=== PATIENT | female | born 1975 | race Caucasian/White ===

== ENCOUNTER 2025-02-21 14:34 | Emergency (ER) | payer MEDICAID, SELFPAY ==
--- OUTSIDE RECORDS SUMMARY | 2025-02-18 22:32 | XMS_ITS | Encounter Summary ---
Author Organization [facility] Address [address] [place] [address] Care Team Providers Care Clinical Data Analyst Name Role Phone Elsewhere, Pcp Primary Care Provider Unavailabl e Reason for Visit * Reason Comments Headache Pt comes in for eval uation of head pressure and vision changes that feels like her previous stroke. She ambulated into the ED and into a room without assistance. There are no other symptoms reported. Symptoms have been ongoing x 2 days. Encounter Details Date Type Department Care Team (Late st Contact Info) Description 02/18/2025 10:32 PM CDT - 02/19/2025 1:10 AM CDT Emergency [facility] [address] [place] [phone] Markell Thomas M.D. [address] [place] [phone] Hypophosphatemia (Primary Dx); Headache Unspecified Discharge Disposition: Home or Self Care Social History Tobacco Use Types Packs/Day Years Used Date Smoking Tobacco: Every Day Cigarettes 0.5 25 Smokeless Tobacco: Never Alcohol Use Standard Drinks/Week Comments Yes 0 (1 standard drink = 0.6 oz pur e alcohol) Hunger Vital Sign Answer Date Recorded Within the past 12 months, y ou worried that your food would run out before you got the money to buy more. Never true 03/23/20 21 Within the past 12 months, t he food you bought just didn't last and you didn't have money to get more. Never true 03/23/2021 PRAPARE - Transportation Answer Date Re corded In the past 12 months, has l ack of transportation kept you from medical appointments or from getting medications? No 03/05 In the past 12 months, has l ack of transportation kept you from meetings, work, or from getting things needed for daily living? No 03/23/2021 Housing Stability Vital Sign Answer Edu e Recorded In the last 12 months, was t here a time when you were not able to pay the mortgage or rent on time? Patient refused 03/23/20 21 Number of Places Lived in the Last Year Not on f ile 03/23/2021 In the last 12 months, was t here a time when you did not have a steady place to sleep or slept in a [facility] (including now)? No 03/23/2021 Education Answer Date Recorded What is the highest level of school you have completed or the highest degree you have received? Associate degree: academic program 03/23/2021 Comments No Sex and Gender Information Value Date Recorded Sex Assigned at Not on file Legal Sex Female 7:07 AM [employer] Gender Identity Female 03/23/2021 11:55 PM CDT Sexual Orientation Straight 03/23/2021 11 :55 PM CDT documented as of this encounter Last Filed Vital Signs Vital Sign Reading Time Taken Comments Blood Pressure 100/73 02/19/2025 12:52 AM CDT Pulse 99 02/19/2025 12:52 AM CDT Temperature 36.7 C (98.1 F) 02/18/2025 10:33 PM CDT Respiratory Rate 16 02/19/2025 12:52 AM CDT Oxygen Saturation 99% 02/19/2025 12:52 AM CDT Inhaled Oxygen Concentration - - Weight 81 kg (178 lb 9.2 oz) 02/18/2025 10:33 PM CDT Height - - Body Mass Index 31.63 03/31/2024 1:36 AM CDT documented in this encounter Discharge Instructions * Discharge Instructions* Markell Thomas M.D. - 02/19/2025 12:24 AM CDT Please follow up with your family doctor on Friday, please continue take your Eliquis as indicated. You were examined and treated today in the [facility] Emergency Department (ED) on an emergency basis. This visit is not a substitute for comprehensive and ongoing medical care. In most cases, you must let your primary physician evaluate you again. Call your doctor today to advise them ofyour ED visit and arrange for out patient follow up. Tell your doctor about any new or lasting problems. After you leave the ED today, please follow the instructions provided to you. Return to the Emergency Department for new, worsening, or persistent symptoms. documented in this encounter Medications at Time of Discharge acetaminophen (TYLENOL) 325 mg tablet Take 325 mg by mouth as needed for pain. albuterol (Ventolin HFA) 90 mcg/actuation inhaler INHALE 1 OR 2 PUFFS INTO THE LUNGS EVERY 6 HOURS NEEDED FOR WHEEZING, SHORTNESS OF BREATH, OR COUGH. SHAKE BEFORE USING 09/27/2011 ALPRAZolam (XANAX) 0.5 mg tablet Take 0.5 mg by mouth 3 (three) times a day as needed. 12/11/2022 diphenhydrAMINE (BENADRYL) 25 mg tablet Take 25 mg by mouth as needed. famotidine (PEPCID) 20 mg tablet Take 1 tablet by mouth at bedtime. 09/06/2022 FLUoxetine (PROzac) 40 mg capsule Take 40 mg by mouth daily. 07/30/2022 furosemide (LASIX) 20 mg tablet Take 20 mg by mouth daily. 10/07/2022 furosemide (LASIX) 20 mg tablet Take 80 mg by mouth. 09/03/2022 losartan (COZAAR) 25 mg tablet Take 25 mg by mouth daily. 10/09/2022 metoprolol succinate (TOPROL-XL) 25 mg 24 hr tablet Take 25 mg by mouth daily. 10/09/2022 oxyCODONE (Roxicodone) 5 mg immediate release tabletIndication s:Acute Pain Take 1 tablet (5 mg total) by mouth every 6 (six) hours as needed for pain (pain) Indication: Acute Pain. 12 tablet 04/01/2024 potassium chloride (KLORCON/K-TAB) 10 mEq ER tablet Take 10 mEq by mouth. 10/09/2022 rosuvastatin (CRESTOR) 40 mg tablet Take 40 mg by mouth. 10/09/2022 traZODone (DESYREL) 50 mg tablet Take 1 tablet by mouth at bedtime. 11/02/2020 warfarin (COUMADIN) 2.5 mg tablet Take one and one half tabs (3.75 mg) by mouth on Mondays and Fridays and one tab (2.5 mg) all other days of the week OR as directed by [facility]. 12/16/2022 warfarin (COUMADIN) 5 mg tablet DOSAGE CHANGE 02/22/2021 documented as of this encounter ED Notes * Markell Thomas M.D. - 02/18/2025 10:47 PM CDT EMERGENCY MEDICINE CHIEF COMPLAINT Headache (Pt comes in for evaluation of head pressure and vision changes that feels like her previous stroke. She ambulated into the ED and into a room without assistance. There are no other symptomsreported. Symptoms have been ongoing x 2 days.) INITIAL VITAL SIGNS Initial Vitals [02/18/25 2233] Temperature 36.7 ??C Pulse Rate 104 Heart Rate Resp Rate 18 Blood Pressure 113/69 SpO2 100 % Pain Score 5 - Moderate pain ASSESSMENT AND PLAN This is a 49 y.o. female with a known history of hypertension, tobacco use, gout, ASD s/p closure at age 5, prior CVA, and TIA on Eliquis (recently switched from Coumadin on 01/2025). She presents tot emergency department for evaluation of headache with associated vision changes for the past 48 hours. She reports that the symptoms feel similar to her prior stroke several years ago; however, she is unable to clarify how she presented at that time. She reports that over the last 2 days, she has had a band-like head pressure with associated halos when looking at lights. She endorses mild nausea secondary to her Wegovy and shakiness, but no blurry vision, chest pain, abdominal pain, or urinary symptoms. She reports that today she felt very shaky and mildly confused, prompting her to come to the emergency department accompanied by her father. She also endorses migraine-like headaches in the past with associated auras; however, it has been several years, and that typically presents in a retro- orbital fashion. Patient self reports that she has a doctor's appointment with her PCP on Friday. On physical exam Patient is alert and oriented. Speech is clear. No facial droop or other cranial nerve abnormality. Extraocular movements intact. No nystagmus. No visual field deficits. No neck stiffness. Pupils equal round and reactive to light. Normal [id number] and [id number]. No pronatordrift. Strength and sensation intact in all 4 extremities. This patient presents with a headache most consistent with benign headache from either tension typeheadache vs migraine. No headache red flags. Neurologic exam without evidence of meningismus, AMS, focal neurologic findings so doubt meningitis, encephalitis, stroke (the patient is on anticoagulation, and outside of the stroke window, no evidence of focal neuro deficit). Presentation not consistent with acute intracranial bleed to include SAH (lack of risk factors, headache history). No historyof trauma so doubt ICH. Doubt carotid artery dissection given no focal neuro deficits, no neck trauma or recent neck strain. Patient with no signs of increased intracranial pressure or weight loss and history and physical suggest more benign headache so less likely mass effect in brain from tumor or abscess or idiopathic intracranial hypertension. Pain was controlled with Zyprexa ODT and patient discharged home with PCP follow up in the [facility] on friday. She understands the the signs and symptoms to prompt return to the ED as well as the follow up planwe discussed. It was a pleasure to meet with and provide care for Mrs. Iverson today. She is comfortable with the plan above and all questions have been answered to the best of our ability for her atthis time. ED Prescriptions None I reviewed the following external records: primary care records ED Course as of 02/19/256 FriFeb 18, 20252336 Creatinine: 0.73 2336 Phosphorus (Inorganic), P(!): 2.1 Will replete PO 2336 INR: 1.3 INR comparable to prior lab obtained in 01/2025 2341 HCG, Quantitative, , P: <1.0 [facility] Feb 19, 2025 0028 Anion Gap, P: 13 0028 Glucose, P: [address] Head Neck Angiogram with IV Contrast CT HEAD: 1. No evidence of an acute intracranial abnormality. CTA HEAD: 1. No hemodynamically significant stenosis or occlusion. CTA NECK: 1. No hemodynamically significant stenosis, occlusion, or evidence of dissection. Final Diagnoses: as of 02/19/2545 Hypophosphatemia Headache Unspecified Markell Thomas M.D. 02/19/25 0047 documented in this encounter Plan of Treatment Not on file documented as of this encounter Procedures Procedure Name Priority Date/Time Associated Diagnosis Comments CT HEAD NECK ANGIOGRAM WITH IV CONTRAST RAD - Semiurgent (Fast; most ED patients; some inpatients) 02/19/2025 12:13 AM CDT PROTHROMBIN TIME (PT), P STAT 02/18/2025 11:09 PM CDT CBC WITH DIFFERENTIAL, B STAT 02/18/2025 11:09 PM CDT HUMAN CHORIONIC GONADOTROPIN (HCG), MARCELINO, STAT 02/18/2025 11:09 PM CDT PHOSPHORUS (INORGANIC), S STAT 02/18/2025 11:09 PM CDT MAGNESIUM, S STAT 02/18/2025 11:09 PM CDT BASIC METABOLIC PANEL, S/P STAT 02/18/2025 11:09 PM CDT documented in this encounter Results * CT Head Neck Angiogram with IV Contrast (02/19/2025 12:13 AM CDT) Anatomical Region Laterality Modality Head and Neck, Neuroradiolog y RST LOS, Neuroradiology ARZ LOS, Neuroradiology FL LOS N/A Computed Tomography 02/19/2025 12:1 9 AM CDT Impressions 02/19/2025 12:[address] HEAD: 1. No evidence of an acute intracranial abnormality. CTA HEAD: 1. No hemodynamically significant stenosis or occlusion. CTA NECK: 1. No hemodynamically significant stenosis, occlusion, or evidence of dissection. Narrative 02/19/2025 12:33 AM CDT EXAM: CT HEAD NECK ANGIOGRAM WITH IV CONTRAST Including 3D image postprocessing with or without AI assistance. COMPARISON: CT head 03/21/2023, CTA head and neck 02/10/2021 FINDINGS: CT BRAIN: Parenchyma: White matter is normal. No parenchymal hemorrhage, mass lesion, or evidence of evolving large territorial infarct. Chronic infarcts of the right temporal lobe and bilateral occipital lobes. Extra-axial spaces: No extra-axial hemorrhage, collection, or generalized intracranial mass effect. Volume: Parenchymal volume is normal. No hydrocephalus. Calvarium: Normal. Extracranial: Orbits unremarkable. The visualized paranasal sinuses are clear. No mastoid or middle ear effusion. Other: N/A CTA NECK: Arch: The visualized aortic arch and origins of the great vessels are patent. Carotids: The bilateral common and internal carotid arteries are patent without hemodynamically significant stenosis or evidence of carotid dissection. ICA origin stenosis by NASCET criteria: Right: 0% Left: 0% Vertebrals: The vertebral arteries are patent without hemodynamically significant stenosis or evidence of vertebral dissection. Other: C4-C5 ACDF. CTA BRAIN: Anterior circulation: The intracranial internal carotid arteries, middle cerebral arteries, and anterior cerebral arteries are patent. No large vessel occlusion. No aneurysm or evidence of vascular malformation or AV fistula. Posterior circulation: The vertebrobasilar junction, posterior cerebral arteries, and major cerebellar branches are patent. No large vessel occlusion. No aneurysm or evidence of vascular malformation or AV fistula. Anatomic variation includes hypoplastic versus absent left P1 segment with patent posterior communicating artery. Venous: The major dural venous sinuses are not well characterized on this exam performed in the arterial phase. Procedure Note Chris Solano M.D. - 02/19/2025 EXAM: CT HEAD NECK ANGIOGRAM WITH IV CONTRAST Including 3D image postprocessing with or without AI assistance. COMPARISON: CT head 03/21/2023, CTA head and neck 02/10/2021 FINDINGS: CT BRAIN: Parenchyma: White matter is normal. No parenchymal hemorrhage, masslesion, or evidence of evolving large territorial infarct. Chronicinfarcts of the right temporal lobe and bilateral occipital lobes. Extra-axial spaces: No extra-axial hemorrhage, collection, or generalizedintracranial mass effect. Volume: Parenchymal volume is normal. No hydrocephalus. Calvarium: Normal. Extracranial: Orbits unremarkable. The visualized paranasal sinuses areclear. No mastoid or middle ear effusion. Other: N/A CTA NECK: Arch: The visualized aortic arch and origins of the great vessels arepatent. Carotids: The bilateral common and internal carotid arteries are patentwithout hemodynamically significant stenosis or evidence of carotiddissection. ICA origin stenosis by NASCET criteria: Right: 0% Left: 0% Vertebrals: The vertebral arteries are patent without hemodynamicallysignificant stenosis or evidence of vertebral dissection. Other: C4-C5 ACDF. CTA BRAIN: Anterior circulation: The intracranial internal carotid arteries, middlecerebral arteries, and anterior cerebral arteries are patent. No largevessel occlusion. No aneurysm or evidence of vascular malformation or AVfistula. Posterior circulation: The vertebrobasilar junction, posterior cerebralarteries, and major cerebellar branches are patent. No large vesselocclusion. No aneurysm or evidence of vascular malformation or AV fistula.Anatomic variation includes hypoplastic versus absent left P1 segment with patent posterior communicatingartery. Venous: The major dural venous sinuses are not well characterized on thisexam performed in the arterial phase. IMPRESSION: CT HEAD: 1. No evidence of an acute intracranial abnormality. CTA HEAD: 1. No hemodynamically significant stenosis or occlusion. CTA NECK: 1. No hemodynamically significant stenosis, occlusion, or evidence ofdissection. us Markell Thomas M.D. IMG CT PROCEDURE S Final Result * (ABNORMAL) Phosphorus Inorganic (02/18/2025 11:09 PM CDT) Phosphorus (Inorganic), P 2.1(L) 2.5 - 4.5 mg/dL 02/18/2025 11:28 PM CDT CNFL Blood (Blood, Venous) 02/18/2025 11:09 PM CDT 02/18/2025 11:11 PM CDT us Markell Thomas M.D. LAB BLOOD ADD-ON Final Result [facility] [address] [place] [id number], [address] [address] * Magnesium (02/18/2025 11:09 PM CDT) Magnesium, P 1.8 1.7 - 2.3 mg/dL 02/18/2025 11:28 PM CDT [facility] Blood (Blood, Venous) 02/18/2025 11:09 PM CDT 02/18/2025 11:11 PM CDT Markell Thomas M.D. LAB BLOOD ADD-ON Final Result [address] [address], [address] [address] * (ABNORMAL) Prothrombin Time (PT) (02/18/2025 11:09 PM CDT) Prothrombin Time, P 14.2(H) 9.4 - 12.5 sec 02/18/2025 11:31 PM CDT [facility] INR 1.3 0.9 - 1.1 02/18/2025 11:31 PM CDT [facility] Comment: ----ADDITIONAL INFORMATION---- Standard intensity warfarin therapeutic range: 2.0 to 3.0 High intensity warfarin therapeutic range: 2.5 to 3.5 Blood (Blood, Venous) 02/18/2025 11:09 PM CDT 02/18/2025 11:11 PM CDT Markell Thomas M.D. LAB BLOOD ADD-ON Final Result Performing Organization Address City/[facility]/ZIP Co de Phone Number [address] [address], [address] [address] * hCG (Human Chorionic Gonadotropin), Quantitative, (02/18/2025 11:09 PM CDT) HCG, Quantitative, , P <1.0 <5 IU/L 02/18/2025 11:37 PM CDT [facility] Blood (Blood, Venous) 02/18/2025 11:09 PM CDT 02/18/2025 11:11 PM CDT Markell Thomas M.D. LAB BLOOD ADD-ON Final Result [facility] [address] [place] [phone], [facility] [email or web address]] CNFL [facility] [place] [address] * (ABNORMAL) CBC with Differential, Blood (02/18/2025 11:09 PM CDT) Pathologist [facility] Hemoglobin 12.4 11.6 - 15.0 g/dL 02/18/2025 11:18 PM CDT [facility]FL Hematocrit 35.0(L) 35.5 - 44.9 % 02/18/2025 11:18 PM CDT [facility] Erythrocytes 3.53(L) 3.92 - 5.13 x10(12)/L 02/18/2025 11:18 PM CDT [facility] MCV 99.2(H) 78.2 - 97.9 fL 02/18/2025 11:18 PM CDT [facility] RBC Distrib Width 15.8 12.2 - 16.1 % 02/18/2025 11:18 PM CDT [facility] Platelet Count 225 157 - 371 x10(9)/L 02/18/2025 11:18 PM CDT [facility] Leukocytes 7.1 3.4 - 9.6 x10(9)/L 02/18/2025 11:18 PM CDT CNFL Neutrophils 5.52 1.56 - 6.45 x10(9)/L 02/18/2025 11:18 PM CDT CNFL Lymphocytes 1.18 0.95 - 3.07 x10(9)/L 02/18/2025 11:18 PM CDT CN[facility] Monocytes 0.35 0.26 - 0.81 x10(9)/L 02/18/2025 11:18 PM CDT CNFL Eosinophils <0.04 0.03 - 0.48 x10(9)/L 02/18/2025 11:18 PM CDT CNFL Basophils <0.04 0.01 - 0.08 x10(9)/L 02/18/2025 11:18 PM CDT [facility] Blood (Blood, Venous) 02/18/2025 11:09 PM CDT 02/18/2025 11:11 PM CDT us Markell Thomas M.D. LAB BLOOD ADD-ON Final Result [facility] [address] [place] [address], [facility] [email or web address]] CNFL [facility] [place] [address] * (ABNORMAL) Basic Metabolic Panel (02/18/2025 11:09 PM CDT) Potassium, P 3.5(L) 3.6 - 5.2 mmol/L 02/18/2025 11:31 PM CDT CNFL Sodium, P 137 135 - 145 mmol/L 02/18/2025 11:31 PM CDT CNFL Chloride, P 105 98 - 107 mmol/L 02/18/2025 11:31 PM CDT CNFL Bicarbonate, P 19(L) 22 - 29 mmol/L 02/18/2025 11:31 PM CDT CNFL Anion Gap, P 13 7 - 15 02/18/2025 11:31 PM CDT [facility] BUN (Blood Urea Nitrogen), P 15 6 - 21 mg/dL 02/18/2025 11:31 PM CDT CN[facility] Creatinine 0.73 0.59 - 1.04 mg/dL 02/18/2025 11:31 PM CDT CNFL Estimated GFR (eGFR) >90 >=60 mL/min/BSA 02/18/2025 11:31 PM CDT CNFL Comment: Estimated GFR calculated using the 2020 CKD_EPI creatinine equation. Calcium, Total, P 9.1 8.6 - 10.0 mg/dL 02/18/2025 11:31 PM CDT CNFL Glucose, P 106 70 - 140 mg/dL 02/18/2025 11:31 PM CDT [facility] Blood (Blood, Venous) 02/18/2025 11:09 PM CDT 02/18/2025 11:11 PM CDT us Markell Thomas M.D. LAB BLOOD ADD-ON Final Result [facility] [address] [place] [id number], [facility] [[email or web address]] CNFL [facility] in [address] [address] documented in this encounter Visit Diagnoses Diagnosis Hypophosphatemia- Primary Headache Unspecified documented in this encounter Administered Medications Inactive Administered Medications - up to 3 most recent administrations Medication Order MAR Action Action Date Dose Rate Site iohexoL 350 mg iodine/mL solution 100 mL (Omnipaque) 100 mL, intravenous, Once in imaging, contrast, Starting on Fri02/18/25 at 2345, For 1 dose Given 02/19/2025 12:14 AM CDT 100 mL NaCl 0.9 % bolus 85 mL 85 mL, intravenous, at 85 mL/hr, Administer over 1 Hours, Once, On Fri02/18/25 at 2346, For 1 dose New Bag 02/19/2025 12:14 AM CDT 85 mL 85 mL/hr OLANZapine disintegrating tablet 5 mg (ZyPREXA Zydis) 5 mg, oral, Once, On Fri02/18/25 at 2249, For 1 dose, When splitting ODT at bedside, handle with gloves and a pill splitter to prevent moisture contact. Given 02/18/2025 11:10 PM CDT 5 mg sodium chloride 0.9 % injection 10 mL 10 mL, intravenous, Once, On Fri02/18/25 at 2346, For 1 dose Given 02/19/2025 12:14 AM CDT 10 mL documented in this encounter Active and Recently Administered Medications Times are shown in CDT. Scheduled Medication Order 02/17/2025 02/18/2025 02/19/2025 NaCl 0.9 % bolus 85 mL (COMPLETED) 85 mL, intravenous, at 85 mL/hr, Administer over 1 Hours, Once, On Fri02/18/25 at 2346, For 1 dose 0014 (New Bag - Provider: Ry Rodriguez(Nimesh)(CT), R.THemal(R))0020 (Stopped - Provider: Ehsan Lyman R.N.) OLANZapine disintegrating tablet 5 mg (ZyPREXA Zydis) (COMPLETED) 5 mg, oral, Once, On Fri02/18/25 at 2249, For 1 dose, When splitting ODT at bedside, handle with gloves and a pill splitter to prevent moisture contact. 2310 (Given - Provider: Ehsan Lyman R.N.) [id number] 280-160-250 mg per packet 2 packet (Phos-NaK) 2 packet, oral, Once, On Fri02/18/25 at 2339, For 1 dose, Mix each packet in 75 mL water or juice then administer ordered dose. 250 mg of phosphate is equivalent to 8 mmol of phosphate. 0115 (Not Given - Provider: Ehsan Lyman R.N. - Reason: Patient/family refused) sodium chloride 0.9 % injection 10 mL (COMPLETED) 10 mL, intravenous, Once, On Fri02/18/25 at 2346, For 1 dose 0014 (Given - Provid er: Ry Rodriguez(Nimesh)(CT), R.T.(R)) PRN Medication Order 02/17/2025 02/18/2025 02/19/2025 iohexoL 350 mg iodine/mL solution 100 mL (Omnipaque) (COMPLETED) 100 mL, intravenous, Once in imaging, contrast, Starting on Fri02/18/25 at 2345, For 1 dose 0014 (Given - Provid er: Ry Rodriguez(Nimesh)(CT), R.THemal(R)) documented in this encounter Additional Health Concerns Assessment Noted Time PHQ-9 Depression Total Score: 13 010 2:18 PM CDT documented as of this encounter Care Teams Clinical Data Analyst Relationship Specialty Start Date End Date Elsewhere, Pcp PCP - General Family Medicine 03/14/21 documented as of this encounter
[2025-02-21] VITALS (9 sets, daily range): BP systolic 99–122; BP diastolic 55–75; PULSE 52–76; RESP 12–18; TEMP 37.1; O2SAT 96–100; BMI 31.5
--- OUTSIDE RECORDS SUMMARY | 2025-02-21 14:37 | XMS_ITS | Encounter Summary ---
Author Organization [facility] Address [address] [address] Phone Care Team Providers Care Agricultural Equipment Sales Manager Name Role Phone Luiz Winn MD Unavailable [phone] Esther Atwood PA-C Unavailable [phone] Reason for Visit * Reason Comments Refill Request ALPRAZolam Encounter Details Date Type Department Care Team ([facility] Contact Info) Description 09/28/2024 Refill [facility] FAMILY [facility]IC[facility] [place] [address] Denise Flynn, SAP SPECIALIST, HEALTHCARE INTERPRETER [facility] [place] [address] Refill Request (ALPRAZolam ) Social History Tobacco Use Types Packs/Day Years Used Date Smoking Tobacco: Every Day Cigarettes 0.3 15 Started: 03/31/2016 Smokeless Tobacco: Never Alcohol Use Standard Drinks/Week Comments Yes 0 (1 standard drink = 0.6 oz pure alcohol) 2 days per week, 2 per occasion [facility] Utilities Answer Date Recorded In the past 12 months has [employer], gas, oil, or water company threatened to shut off services in your home? Yes 02/19/2024 Overall Financial Resource Strain (CARDIA) Answe r Date Recorded How hard is it for you to pa y for the very basics like food, housing, medical care, and heating? Not hard at all 08/22/2023 PHQ-2 Answer Date Recorded PHQ-2 Total 1 02/19/2024 Hunger Vital Sign Answer Date Recorded Within the past 12 months, y ou worried that your food would run out before you got the money to buy more. Never true 02/19/20 24 Within the past 12 months, t he food you bought just didn't last and you didn't have money to get more. Never true 02/19/2024 PRAPARE - Transportation Answer Date Re corded In the past 12 months, has l ack of transportation kept you from medical appointments or from getting medications? No 02/01 In the past 12 months, has l ack of transportation kept you from meetings, work, or from getting things needed for daily living? Yes 02/19/2024 Housing Stability Vital Sign Answer Edu e Recorded In the last 12 months, was t here a time when you were not able to pay the mortgage or rent on time? Yes 02/19/2024 Number of Times Moved in the Last Year Not on fi le 02/19/2024 At any time in the past 12 m [facility], were you homeless or living in a long term (including now)? No 02/19/2024 EH IP Housing Domain Answer Date Record ed Retired - What is your livin g situation today? I have a steady place to live 08/22/2023 EH IP Custom Utilities ([employer]) Answer Date Recorded How hard is it for you to pa y for the very basics like food, housing, medical care, and heating? 5 08/22/2023 EH IP Custom IPV Answer Date Recorded Do you feel UNSAFE in any of your personal relationships with your family members or any other acquaintances? 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 file Not on file documented as of this encounter Functional Status * Patient's Vision Adequate to Safely Complete Daily Activities Answer Date of Assessment Author Yes 12/02/2022 10:00 PM Adolfo Viveros RN * Patient's Memory Adequate to Safely Complete Daily Activities Answer Date of Assessment Author Yes 12/02/2022 10:00 PM Adolfo Viveros RN documented as of this encounter Mental Status * Patient's Judgment Adequate to Safely Complete Daily Activities Answer Entry Date Author Yes 12/02/2022 10:00 PM Adolfo Viveros RN documented in this encounter Miscellaneous Notes * Telephone Encounter - Arely Dallas RN - 09/28/2024 11:09 PM CST Denise Flynn APRN, HEALTHCARE INTERPRETER, Patient has no PCP listed. Patient was last seen by you on 02/19/24. Would you like to refill this medication as requested? Thank you. Requested Prescriptions Pending Prescriptions Disp Refills ALPRAZolam (XANAX) 0.5 MG tablet [Pharmacy Med Name: ALPRAZOLAM 0.5MG TABS] 75 Tablet 3 Sig: TAKE ONE TABLET BY MOUTH THREE TIMES A DAY NEEDED FOR ANXIETY Controlled Medication Failed - 09/28/2024 11:09 PM Failed - Controlled Medication: Review according to the controlled medication policy, if applicable. ER MACHINE ATTENDANT documented in this encounter Plan of Treatment Not on file documented as of this encounter Visit Diagnoses Not on filedocumented in this encounter Care Teams Agricultural Equipment Sales Manager Relationship Specialty Start Date End Date Luiz Winn MD [facility] [place] [address] PC Team Family Medicine 02/22/21 Esther Atwood PAChristianC [address] [place] [address] [phone] Cardiology 05/15/21 documented as of this encounter
--- OUTSIDE RECORDS SUMMARY | 2025-02-21 14:37 | XMS_ITS | Encounter Summary ---
Author Organization [facility] Address [address] [address] Phone Care Team Providers Care Insole Cementer Name Role Phone Luiz Winn MD Unavailable [phone] Esther Atwood PA-C Unavailable [phone] Denise Flynn APRN, PLASTICS FACTORY WORKER Primary Care Provider Encounter Details Date Type Department Care Team (Late st Contact Info) Description 06/06/2022 Lab Requisition [facility] [address] [place] [address] Titus العلي MD [address] [place] [address] Contact with and (suspected) exposure to other viral communicable diseases Social History Tobacco Use Types Packs/Day Years Used Date Smoking Tobacco: Every Day Cigarettes 0.3 15 Started: 03/31/2016 Smokeless Tobacco: Never Alcohol Use Standard Drinks/Week Comments Yes 0 (1 standard drink = 0.6 oz pure alcohol) 2 days per week, 2 per occasion Overall Financial Resource Strain (CARDIA) Answe r Date Recorded How hard is it for you to pa y for the very basics like food, housing, medical care, and heating? Somewhat hard 09/25/2021 PHQ-2 Answer Date Recorded PHQ-2 Total 0 10/03/2021 Hunger Vital Sign Answer Date Recorded Within the past 12 months, y ou worried that your food would run out before you got the money to buy more. Never true 09/25/19 22 Within the past 12 months, t he food you bought just didn't last and you didn't have money to get more. Never true 09/25/2021 PRAPARE - Transportation Answer Date Re corded In the past 12 months, has l ack of transportation kept you from medical appointments or from getting medications? No 09/05 In the past 12 months, has l ack of transportation kept you from meetings, work, or from getting things needed for daily living? 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 No / Unsure 05/31/2022 2:00 PM CDT documented as of this encounter Plan of Treatment Not on file documented as of this encounter Visit Diagnoses Diagnosis Contact with and (suspected) exposure to other viral communicable diseases documented in this encounter Care Teams Insole Cementer Relationship Specialty Start Date End Date Denise Flynn, COUNTY LIBRARY DIRECTOR, PLASTICS FACTORY WORKER [address] [place] [address] [phone] PCP - General Family Medicine 10/29/21 09/01/24 Luiz Winn MD [address] [place] [address] [phone] PC Team Family Medicine 02/22/21 Esther Atwood, PAChristianC [address] [place] [address] [phone] Cardiology 05/15/21 documented as of this encounter
--- OUTSIDE RECORDS SUMMARY | 2025-02-21 14:37 | XMS_ITS | Clinical Summary ---
Author Organization [facility] Address [address] [place] [address] Care Team Providers Care Patient Coordinator Front Desk Name Role Phone [facility], [facility] Primary Care Provide r Allergies Active Allergy Reactions Criticality Noted Date Comments Bupropion Other (See Comments) 06/04/2007 head pressure Levaquin 09/27/2011 Morphine Hives 02/10/2021 Nitrofurantoin Hives 08/09/2004 Promethazine-Dm 09/27/2011 Sulfa Antibiotics Hives 02/10/2021 Medications albuterol 90 MCG/ACT inhaler Inhale 2 puffs into the lungs every 4 hours as needed for shortness of breath / dyspnea. 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, unspecified blood vessel laterality (H) Take 1 tablet (4 mg) by mouth every 8 hours as needed for nausea 30 tablet Active Active Problems Problem Noted Date Diagnosed Date CVA (cerebral vascular accident) 02/11/2021 Cerebrovascular accident 02/10/2021 Vision changes 02/10/2021 Palpitations 01/08/2017 Ocular migraine 09/22/2012 Pain medication agreement 10/11/2011 Adjustment disorder with anxiety 03/03/2008 Attention deficit disorder 12/11/2007 Overview (02/10/2021): Dx'ed as teen Major depressive disorder, recurrent episode 08/2006 Calculus of kidney 05/29/2007 Overview (02/10/2021): starting at age 19 years Asthma 10/10/2006 Mitral valve regurgitation Social History Tobacco Use Types Packs/Day Years Used Date Smoking Tobacco: Never Assessed Adolescent Education Answer Date Record ed Getting School Help Needed Not on file 05/01 Comments No Sex and Gender Information Value Date Recorded Sex Assigned at Not on file Legal Sex Female 3:23 AM 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 Gender Identity Not on file Sexual Orientation Not on file Last Filed Vital Signs Vital Sign Reading Time Taken Comments Blood Pressure 107/66 11/08/2022 12:35 PM CDT Pulse 66 11/08/2022 12:35 PM CDT Temperature 37.1 C (98.8 F) 11/08/2022 6:28 AM CDT Respiratory Rate 18 11/08/2022 12:35 PM CDT Oxygen Saturation 96% 11/08/2022 12:35 PM CDT Inhaled Oxygen Concentration - - Weight 74.8 kg (165 lb) 11/08/2022 6:28 AM CDT Height 160 cm (5' 3) 02/11/2021 12:20 AM CDT Body Mass Index 29.23 02/11/2021 12:20 AM CDT Plan of Treatment Health Maintenance Due Date Last Done Comments ADVANCE CARE PLANNING 1976 ANNUAL REVIEW OF HM ORDERS 1976 ASTHMA ACTION PLAN [address] ASTH[address] COLONOGRAPHY 1976 DEPRESSION ACTION PLAN 1976 FIT 1976 FLEX SIG 1976 PHQ-9 1976 sDNA (Cologuard) 1976 COLONOSCOPY 1986 COLORECTAL CANCER SCREENING 1986 HEPATITIS B VACCINE (1 of 3 - 19+ 3-dose series) 11/27/1995 PNEUMOCOCCAL VACCINE: PEDIATRICS (0 to 5 YEARS) AND AT-RISK PATIENTS (6 to 49 YEARS) (1 of 2 - PCV) 11/27/1995 YEARLY PREVENTIVE VISIT 01/08/2018 01/08/2017, 11/10 HPV VACCINE (2 - 3-dose SCDM series) 10/31/2021 10/03/2021 LIPID 02/11/2022 02/11/2021 MAMMO SCREENING 12/11/2022 12/11/2020 COVID-19 VACCINE ( - season) 2024 08/07/2021, 12/27/2020, 11/12/2020 PAP 10/03/2024 10/03/2021, 03/0 09/2021, 10/03/2021, Additional history exists INFLUENZA VACCINE (#1) 2025 , 05/28/2019, 05/04/2018, Additional history exists DIABETES SCREENING 11/08/2025 11/08/2022, 1 , 02/14/2021, Additional history exists ZOSTER VACCINE (1 of 2) 2026 DTAP/TDAP/TD VACCINE (2 - Td or Tdap) 12/17/2026 12/17/2016 HEPATITIS C SCREENING Completed 08/27/2018, 005 HIV SCREENING Completed 10/03/2021, 06/24/2006 MENINGITIS VACCINE Aged Out No longer eligible based on patient's age to complete this topic Procedures Procedure Name Priority Date/Time Associated Diagnosis Comments COMPREHENSIVE METABOLIC PANEL STAT 11/08/2022 6:48 AM CDT LIPID PROFILE Routine 02/11/2021 7:10 AM CDT from Last 3 Months or Most Recently Relevant to Health Maintenance Results * (ABNORMAL) Comprehensive metabolic panel (11/08/2022 6:48 AM CDT) Sodium 137 136 - 145 mmol/L 11/08/2022 7:37 AM CDT [facility] Potassium 2.9(L) 3.4 - 5.3 mmol/L 11/08/2022 7:37 AM CDT LABORATORY Chloride 96(L) 98 - 107 mmol/L 11/08/2022 7:37 AM CDT LABORATORY Carbon Dioxide (CO2) 32(H) 22 - 29 mmol/L 11/08/2022 7:37 AM CDT LABORATORY Anion Gap 9 7 - 15 mmol/L 11/08/2022 7:37 AM CDT LABORATORY Urea Nitrogen 13.2 6.0 - 20.0 mg/dL 11/08/2022 7:37 AM CDT LABORATORY Creatinine 0.90 0.51 - 0.95 mg/dL 11/08/2022 7:37 AM CDT LABORATORY Calcium 10.1(H) 8.6 - 10.0 mg/dL 11/08/2022 7:37 AM CDT LABORATORY Glucose 71 70 - 99 mg/dL 11/08/2022 7:37 AM CDT LABORATORY Alkaline Phosphatase 90 35 - 104 U/L 11/08/2022 7:37 AM CDT LABORATORY AST 52(H) 10 - 35 U/L 11/08/2022 7:37 AM CDT LABORATORY Comment:Specimen is hemolyze d which can falsely elevate AST. Analysis of a non-hemolyzed specimen may result in a lower value. ALT 42(H) 10 - 35 U/L 11/08/2022 7:37 AM CDT LABORATORY Protein Total 7.5 6.4 - 8.3 g/dL 11/08/2022 7:37 AM CDT LABORATORY Albumin 4.4 3.5 - 5.2 g/dL 11/08/2022 7:37 AM CDT LABORATORY Bilirubin Total 0.5 <=1.2 mg/dL 11/08/2022 7:37 AM CDT LABORATORY GFR Estimate 80 >60 mL/min/1.7 3m2 11/08/2022 7:37 AM CDT LABORATORY Comment:eGFR calculated usin 2020 CKD-EPI equation. Blood BLOOD SPECIMEN / Unknown Venipuncture / Unknown 11/08/2022 6:48 AM CDT 11/08/2022 7:05 AM CDT us Dick Cummings MD LAB - BLOOD ORDERABLES F inal Result LABORATORY [facility] [address] Lab (1st floor, no room number) [place] [address], [place] [phone] * (ABNORMAL) Lipid panel reflex to direct LDL: Non-fasting (02/11/2021 7:10 AM CDT) [facility] Cholesterol 177 <200 mg/dL 02/11/2021 7:59 AM CDT [facility] Comment: Age 0-19 years Desirable: <170 mg/dL Borderline high: 170-199 mg/dl High: >199 mg/dl Age 20 years and older Desirable: <200 mg/dL Triglycerides 122 <150 mg/dL 02/11/2021 7:59 AM CDT [facility] Comment: 0-9 years: Normal: Less than 75 mg/dL Borderline high: 75-99 mg/dL High: Greater than or equal to 100 mg/dL 0-19 years: Normal: Less than 90 mg/dL Borderline high: 90-129 mg/dL High: Greater than or equal to 130 mg/dL 20 years and older: Normal: Less than 150 mg/dL Borderline high: 150-199 mg/dL High: 200-499 mg/dL Very high: Greater than or equal to 500 mg/dL Direct Measure HDL 51 >=50 mg/dL 02/11/2021 7:59 AM CDT [facility] Comment: 0-19 years: Greater than or equal to 45 mg/dL Low: Less than 40 mg/dL Borderline low: 40-44 mg/dL 20 years and older: Female: Greater than or equal to 50 mg/dL Male: Greater than or equal to 40 mg/dL LDL Cholesterol Calculated 102(H) <=100 mg/dL 02/11/2021 7:59 AM CDT [facility] Comment: Age 0-19 years: Desirable: 0-110 mg/dL Borderline high: 110-129 mg/dL High: >= 130 mg/dL Age 20 years and older: Desirable: <100mg/dL Above desirable: 100-129 mg/dL Borderline high: 130-159 mg/dL High: 160-189 mg/dL Very high: >= 190 mg/dL Non HDL Cholesterol 126 <130 mg/dL 02/11/2021 7:59 AM CDT [facility] Comment: 0-19 years: Desirable: Less than 120 mg/dL Borderline high: 120-144 mg/dL High: Greater than or equal to 145 mg/dL 20 years and older: Desirable: 130 mg/dL Above Desirable: 130-159 mg/dL Borderline high: 160-189 mg/dL High: 190-219 mg/dL Very high: Greater than or equal to 220 mg/dL Patient Fasting > 8hrs? Yes TERI 02/11/2021 7:59 AM CDT [facility] Blood STRUCTURE OF RIGHT HAND / Unknown Venipuncture / Unknown 02/11/2021 7:10 AM CDT 02/11/2021 7:24 AM CDT us Ana De La Rosa MD LAB - BLOOD ORDERABLES Josefina christensen Result LABORATORY [facility] [address] Lab (1st floor, no room number) [place] [address], [facility] [phone] from Last 3 Months or Most Recently Relevant to Health Maintenance Insurance [facility] Advance Directives For more information, please contact: [phone] * Full Code (Latest Code Status on File) Date Activated Date Inactivated Comments 02/11/2021 12:22 AM 02/14/2021 6:30 PM All basic a nd advanced life-sustaining interventions are performed as appropriate Question Answer Comments Code status determined by: Discussion with harshil nt/ legal decision maker Care Teams Patient Coordinator Front Desk Relationship Specialty Start Date End Date [facility], [facility] [place] [address] [place] [address] [phone] PCP - General 02/10/21
--- OUTSIDE RECORDS SUMMARY | 2025-02-21 14:37 | XMS_ITS | Clinical Summary ---
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 Active diphenhydrAMINE (BENADRYL) 25 mg tablet Take 25 mg by mouth one time if needed. Active ALPRAZolam (XANAX) 0.5 mg tabletIndications: ANNA (generalized anxiety disorder) Take 1 Tablet (0.5 mg) by mouth two times daily. 60 Tablet 5 10/12/19 25 Active rosuvastatin (CRESTOR) 40 mg tabletIndications: Cerebrovascular accident (CVA) due to other mechanism (HC),Chronic HFrEF (heart failure with reduced ejection fraction) (HC) Take 1 Tablet (40 mg) by mouth once daily. 90 Tablet 3 10/14/19 25 Active metoprolol succinate (TOPROL XL) 25 mg Sustained-Release tabletIndications: Chronic HFrEF (heart failure with reduced ejection fraction) (HC) Take 1 Tablet (25 mg) by mouth once daily. 90 Tablet 3 10/14/19 25 Active Additional Information Patient not taking.Reported on 02/21/2025 FLUoxetine (PROZAC) 40 mg capsuleIndications :ANNA (generalized anxiety disorder) Take 1 Capsule (40 mg) by mouth once daily in the morning. 90 Capsule 3 10/14/19 25 Active albuterol HFA (Ventolin HFA) 90 mcg/actuation inhalerIndications :Wheezing Inhale 1-2 Puffs by mouth every 4 hours while awake. 1 Each 11 10/14/19 25 Active apixaban 5 mg tabletIndications: prevention of venous thromboembolism recurrence Take 1 Tablet (5 mg) by mouth two times daily. 180 Tablet 3 01/14/20 25 Active omeprazole 20 mg Delayed-Release capsuleIndications :Chronic GERD Take 1 Capsule (20 mg) by mouth once daily before a meal. Take 30 minutes prior to a meal 90 Capsule 3 01/14/20 25 Active spironolactone 25 mg tabletIndications: Hair loss Take 1 Tablet (25 mg) by mouth once daily in the morning. After 2 weeks, increase to 50 mg daily. 180 Tablet 3 01/14/20 25 Active ondansetron 4 mg disintegrating tabletIndications: Nausea and vomiting, unspecified vomiting type Place 1 Tablet (4 mg) on the tongue every 8 hours if needed for Nausea/Vomiting . 30 Tablet 1 01/14/20 25 Active ergocalciferol 50,000 unit capsuleIndications :Vitamin D deficiency Take 1 Capsule (50,000 units) by mouth once weekly for 8 doses. 4 Capsule 1 01/18/20 25 025 Active semaglutide (weight loss) (Wegovy) 1 mg/0.5 mL subcutaneous penIndications:Obe sity (BMI 30.0-34.9) Inject 1 mg subcutaneous once weekly. 6 mL 3 02/15/20 25 Active tirzepatide (weight loss) (Zepbound) 7.5 mg/0.5 mL penIndications:Obe sity (BMI 30-39.9) Inject 7.5 mg subcutaneous once weekly. Start after 4 weeks of 5 mg dosing 6 mL 01/17/20 25 025 Discontin ued(*Medi cation adjustmen t) Active Problems Problem Noted Date Diagnosed Date Chronic HFrEF (heart failure with reduced ejection fraction) 10/13/2024 Mitral valve regurgitation 03/31/2024 Recurrent depression 06/23/2022 Visual impairment 09/18/2021 Overview (03/31/2024): 2/2 to CVA Prediabetes 09/17/2021 Overview (03/31/2024): Patient met criteria for the diabetes prevention program for pre-diabetes patients. Problem ?prediabetes? added to patient's list. Reviewed and approved by [facility] in Spring 2020. Eligibility criteria: https://www.cdc.gov/diabetes/prevention/program-eligibility.html Please contact Dr. Winters with any concerns. Cerebrovascular accident (CVA) 02/10/2021 Elevated liver enzymes 02/20/2019 Macrocytosis without anemia 02/20/2019 Subclinical hyperthyroidism 02/20/2019 Hair loss 01/08/2017 Obesity (BMI 30-39.9) 01/08/2017 Palpitations 01/08/2017 Seasonal allergic rhinitis due to pollen 017 H/O atrial septal defect repair 09/22/2012 Overview (03/31/2024): 4 yo Ocular migraine 09/22/2012 Pain medication agreement 10/11/2011 Anxiety state, unspecified 02/27/2010 PMS (premenstrual syndrome) 02/27/2010 Tobacco use disorder 02/27/2010 Insomnia, unspecified 12/28/2008 Adjustment disorder with depressed mood 03/03/20 08 Attention deficit disorder without mention of hy peractivity 12/11/2007 Overview (12/11/2007): Dx'ed as teen Headache(784.0) 06/04/2007 Major depressive disorder, recurrent episode, un specified 06/04/2007 Calculus of kidney 05/29/2007 Overview (05/29/2007): starting at age 19 years Diseases of tricuspid valve 10/10/2006 Overview (10/10/2006): and mitral valve Migraine, unspecified, witho ut mention of intractable migraine without mention of status migrainosus Resolved Problems Problem Noted Date Diagnosed Date Resolved Date Personal history of venous t hrombosis and embolism 10/14/2024 01/14/2025 Cerebrovascular accident (CV A) due to other mechanism 10/11/2024 01/14/2025 Anticoagulation monitoring, INR range 2-3 10/11/2024 01/14/2025 Chronic systolic heart failure 04/10/2021 10/13/2024 Overview (03/31/2024): Added automatically from request for surgery [id number] Hoarseness 01/08/2017 10/13/2024 Supervision of other normal 12/12/2006 05/29/2007 ASTHMA/allergy induced 10/10/200610/13 Encounters Date Type Department Care Team Description 02/21/2025 1:50 PM CDT Office Visit [address] [address] Susana Fajardo PA Referral (Sleep study and endrocrinology); Ear Pain/problem (Left ear hurts) 02/21/2025 Travel 02/17/[address] [address] Susana Fajardo PA Appointment 02/10/[address] [address] Susana Fajardo PA Prior Authorization (tirzepatide (weight loss) (Zepbound) 7.5 mg/0.5 mL pen DENIED) 02/10/[address] [address] Susana Fajardo PA Medication Management (Wegovy) 01/20/[address] [address] Susana Fajardo PA Anticoagulation (Acelis) 01/17/[address] [address] Susaan Fajardo PA Abnormal Lab Results 01/17/2025 Orders Only [address] [address] Susana Fajardo PA <No scans attached> 01/14/[address] [address] Susana Fajardo PA Refill Request (Zepound 7.5mg ) 01/13/2025 9:10 AM CDT Office Visit [address] [address] Susana Fajardo PA Medication Management; UTI 01/13/2025 Anticoagulation (warfarin) [address] [address] 1, [facility] Anticoagulation 01/13/2025 Travel 01/05/[address] [address] Susana Fajardo PA Anticoagulation 12/23/[address] [address] Susana Fajardo PA Anticoagulation (Unable to contact) 12/21/2024 Anticoagulation (warfarin) [address] [address] 1, [facility] Anticoagulation 12/20/2024 1:00 PM CDT Orders Only [address] [address] Lab, [facility] 12/20/2024 Travel 12/15/[address] [address] Susana Fajardo PA Anticoagulation (INR OVERDUE REMINDER #4 ) 11/30/[address] [address] Susana Fajardo PA Anticoagulation (INR OVERDUE REMINDER #3 ) from Last 3 Months Immunizations Immunization Administration Dates Next Due COVID-19 vaccine (Moderna 100mcg/0.5mL) PF, MDV 11/12/2020 HPV 9 (Gardasil 9) 10/03/2021 INFLUENZA, IIV3 PF (AGE >= 6 MO) 05/08/2020,08/2017 Influenza Intradermal PF 18-64 yrs 08/14/2011 Influenza Virus, Unspecified 05/08/2020,05/04/20 18 Influenza, IIV3 (Age >=3 years) 05/20/2012,06/19 Influenza, IIV4 05/28/2019 Influenza, IIV4 (=>6mos) MDV 06/13/2017 Influenza,CCIIV4 PRESERV FREE 05/28/2019 MMR 03/26/2004 Tdap 12/17/2016 Family History Medical History Relation Name Comments Heart Disease Father Hyperlipidemia Maternal Grandmother Hypertension Maternal Grandmother Heart Disease Mother mirtral valve prolapse Hyperlipidemia Mother Hypertension Mother Relation Name Status Comments Father Maternal Grandmother Mother Social History Tobacco Use Types Packs/Day Years Used Date Smoking Tobacco: Former Cigarettes 0.1 1.3 S tarted: 11/12/2023 Smokeless Tobacco: Never Tobacco Cessation:Counseling Given: Yes Alcohol Use Standard Drinks/Week Comments No 0 (1 standard drink = 0.6 oz pur e alcohol) PHQ-2 Answer Date Recorded PHQ-2 TOTAL SCORE 1 10/11/2024 Social Connections Answer Date Recorded Do you often feel lonely or isolated from those around you? 0 10/11/2024 Financial Resource Strain Answer Date R ecorded Difficulty of Paying Living Expenses 3 10/11/2024 Difficulty of Paying Living Expenses Not on file 10/11/2024 Food Insecurity Answer Date Recorded Do you worry your food will run out before you are able to buy more? 1 10/11/2024 Transportation Needs Answer Date Record ed Does lack of transportation keep you from medica l appointments? 1 10/11/2024 Does lack of transportation keep you from work, meetings or getting things that you need? 1 10/11/2024 Housing Stability Answer Date Recorded What is your housing situation today? 1 10/11/2024 Utilities Answer Date Recorded Do you have trouble paying f or utilities (for example, heat, electricity, water, phone)? 1 10/11/2024 Comments No Sex and Gender Information Value Date Recorded Sex Assigned at Not on file Legal Sex Female 5:26 AM [employer] Gender Identity Not on file Sexual Orientation Not on file Obstetrics History Para Term AB IAB SAB Ectopic Multiple Livin g Live Births 3 2 2 0 0 0 0 2 Date Outcome GA Total Labor Labor/2nd/3rd Weight Sex Type Anes PTL Giulia A1 A5 Name Clin Term Term Last Filed Vital Signs Vital Sign Reading Time Taken Comments Blood Pressure 130/80 02/21/2025 1:47 PM CDT Pulse 80 02/21/2025 1:47 PM CDT Temperature 36.6 C (97.9 F) 08/03/2010 4:16 PM [employer]ER Respiratory Rate 18 10/15/2009 10:00 AM CDT Oxygen Saturation 100% 02/21/2025 1:47 PM CDT Inhaled Oxygen Concentration - - Weight 79.2 kg (174 lb 9.6 oz) 02/21/2025 1:47 P M CDT Height 157.1 cm (5' 1.85) 10/11/2024 2:36 PM CD T Body Mass Index 32.09 10/11/2024 2:36 PM CDT Plan of Treatment Health Maintenance Due Date Last Done Comments HIV for age 15-65 11/27/1991 Hepatitis C screening for ag e 18-79 1994 Hepatitis B series for 19+ ( 1 of 3 - 19+ 3-dose series) 11/27/1995 Pneumococcal series for age 6-49 (1 of 2 - PCV) 11/27/1995 Mammogram for age 45-75 2021 COVID-19 vaccine series ( season) 2024 08/07/2021, 12/27/2020, 11/12/2020 Pap test for age 21-65 10/03/2024 2 (Verified in Care Everywhere or Patient Record), 12/07/2009, 03/27/2007, Additional history exists Influenza Vaccine (#1) 2025 0, 05/08/2020, 05/28/2019, Additional history exists BMI (ht and wt on same day) for age 18+ 10/11/2025 10/11/2024 Depression screening for age 12+ 10/14/2025 10/14/2024, 10/13/2024, 10/13/2024, Additional history exists Tetanus booster 12/17/2026 12/17/2016, 08/23/2011 Fecal testing sDNA-FIT (Harrison guard) for age 45-75 01/20/2028 01/19/2025 Lipids for age 45-75 10/11/2029 10/11/2024, 10/03/2011, 10/03/2011, Additional history exists Medical Devices Implanted Type Area Brew[employer] 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 Device Identifier Shelf Expiration Date Model / Serial / Lot [id number] Implanted:Qty: 1 on 10/12/2009 at [facility] Explanted:at [facility] (Quantity not on file) Spine [email or web address] 07/12/2014 [id number] / [id number] / Description:BIO AVS CERV 4 Plate One Lvl 12mm Implanted:Qty: 1 on 10/12/2009 at [facility] Explanted:at [facility] (Quantity not on file) [id number] / / Description:PLATE ONE LVL 12 MM 4.0x12 Lyla Screw Implanted:Qty: 3 on 10/12/2009 at [facility] Explanted:at [facility] (Quantity not on file) Spine [id number] / / Description:4.0X12 LYLA SCREW 4.0x12 Lyla Self Drilling Screw Implanted:Qty: 1 on 10/12/2009 at [facility] Explanted:at [facility] (Quantity not on file) Spine [id number] / / Description:4.0X12 LYLA SELF DRILLING SCREW Procedures Procedure Name Priority Date/Time Associated Diagnosis Comments SDNA-FIT EXTERNAL (COLOGUARD) Routine 01/19/2025 5:15 PM CDT Screening for colorectal cancer VITAMIN D 25 (DEFICIENCY) Routine 01/13/2025 10:25 AM CDT Vitamin D deficiency VITAMIN B12 Routine 01/13/2025 10:25 AM CDT Screening for deficiency anemia CBC WITH AUTO DIFFERENTIAL Routine 01/13/2025 10:25 AM CDT Screening for deficiency anemia FERRITIN Routine 01/13/2025 10:25 AM CDT Screening for deficiency anemia IRON PLUS IRON BINDING CAP Routine 01/13/2025 10:25 AM CDT Screening for deficiency anemia PROTIME-INR Routine 01/13/2025 10:23 AM CDT Cerebrovascular accident (CVA) due to other mechanism (HC) Anticoagulation monitoring, INR range 2-3 URINALYSIS MACROSCOPIC - [facility] ONLY POC DIP ([facility]) Routine 01/13/2025 9:32 AM CDT Urine frequency URINALYSIS MICROSCOPIC Routine 01/13/2025 9:31 AM CDT Urine frequency URINE CULTURE Routine 01/13/2025 9:31 AM CDT Urine frequency PROTIME-INR Routine 12/20/2024 1:21 PM CDT Cerebrovascular accident (CVA) due to other mechanism (HC) Anticoagulation monitoring, INR range 2-3 LIPID PANEL W REFLEX MEASURED LDL Routine 10/11/2024 3:24 PM CDT Cerebrovascular accident (CVA) due to other mechanism (HC) CUSTOMER SERVICE VOICE THIN PREP PAP SCREEN IMAGED Routine 12/07/2009 6:48 PM CDT Screening for malignant neoplasm of the cervix from Last 3 Months or Most Recently Relevant to Health Maintenance Results * SDNA-FIT EXTERNAL (COLOGUARD) [[id number]] (01/19/2025 5:15 PM CDT) NONINV COLON CA DNA+OCC BLD SCRN STL-IMP Negative Negative 01/26/2025 8:12 AM CDT [facility] (CLIA #:[id number]) Comment: The Cologuard (TM) test was performed on this specimen. NEGATIVE TEST RESULT. A negative Cologuard result indicates a low likelihood that a colorectal cancer (CRC) or advanced adenoma (adenomatous polyps with more advanced pre-malignant features) is present. The chance that a person with a negative Cologuard test has a colorectal cancer is less than 1 in 1500 (negative predictive value >99.9%) or has an advanced adenoma is less than 5.3% (negative predictive value 94.7%). These data are based on a prospective cross-sectional study of 10,000 individuals at average risk for colorectal cancer who were screened with both Cologuard and colonoscopy. (Stevenson Palomares al, N Engl J Med 2014;370(14):1286- 1297) The normal value (reference range) for this assay is negative. COLOGUARD RE-SCREENING RECOMMENDATION: Periodic colorectal cancer screening is an important part of preventive healthcare for asymptomatic individuals at average risk for colorectal cancer. Following a negative Cologuard result, the [place] Cancer Society and U.S. Multi-Society Task Force screening guidelines recommend a Cologuard re-screening interval of 3 years. References: [place] Cancer Society Guideline for Colorectal Cancer Screening: https://www.cancer.org/cancer/sathi-mlrpgq-hyhnja/aprzxmomn-sdtamyvrk-uapninl/ac s-rec ommendations.html.; Jh RAMACHANDRAN, Leah SRINIVASAN, Todd GarlandK, Colorectal Cancer Screening: Recommendations for Physicians and Patients from the U.S. Multi-Society Task Force on Colorectal Cancer Screening , Am J Gastroenterology 2017; 112:1387-1917. TEST DESCRIPTION: Composite algorithmic analysis of stool DNA-biomarkers with hemoglobin immunoassay. Quantitative values of individual biomarkers are not reportable and are not associated with individual biomarker result reference ranges. Cologuard is intended for colorectal cancer screening of adults of either sex, 45 years or older, who are at average-risk for colorectal cancer (CRC). Cologuard has been approved for use by the U.S. FDA. The performance of Cologuard was established in a cross sectional study of average-risk adults aged 50-84. Cologuard performance in patients ages 45 to 49 years was estimated by sub-group analysis of near-age groups. Colonoscopies performed for a positive result may find as the most clinically significant lesion: colorectal cancer [4.0%], advanced adenoma (including sessile serrated polyps greater than or equal to 1cm diameter) [20%] or non- advanced adenoma [31%]; or no colorectal neoplasia [45%]. These estimates are derived from a prospective cross-sectional screening study of 10,000 individuals at average risk for colorectal cancer who were screened with both Cologuard and colonoscopy. (Stevenson Rivero et al, N Engl J Med 2014;370(14):8726-5384.) Cologuard may produce a false negative or false positive result (no colorectal cancer or precancerous polyp present at colonoscopy follow up). A negative Cologuard test result does not guarantee the absence of CRC or advanced adenoma (pre-cancer). The current Cologuard screening interval is every 3 years. (Australian Cancer Society and U.S. Multi-Society Task Force). Cologuard performance data in a 10,000 patient pivotal study using colonoscopy as the reference method can be accessed at the following location: www.[employer]/results. Additional description of the Cologuard test process, warnings and precautions can be found at www.Arriendas.cl.Daegis. Stool specimen (specimen) (Rectum) 01/19/2025 5:15 PM CDT 01/21/2025 11:50 AM CDT Susana RAMIREZ URINE Final Resu lt [facility] (CLIA #:[id number]) [address] [place] [address], * (ABNORMAL) VITAMIN D 25 (DEFICIENCY) (01/13/2025 10:25 AM CDT) VITAMIN D,25-OH,TOTAL,IA 7(L) 30 - 100 ng/mL [facility] Comment: Vitamin D Status 25-OH Vitamin D: Deficiency: <20 ng/mL Insufficiency: 20 - 29 ng/mL Optimal: > or = 30 ng/mL For 25-OH Vitamin D testing on patients on D2-supplementation and patients for whom quantitation of D2 and D3 fractions is required, the [facility](TM) 25-OH VIT D, (D2,D3), LC/MS/MS is recommended: order code 54047 (patients >2yrs). See Note 1 Note 1 For additional information, please refer to http://education.View [employer]/faq/WTG603 (This link is being provided for informational/ educational purposes only.) Blood BLOOD SPECIMEN / Unknown 01/13/2025 10:25 AM CDT 01/13/2025 10:25 AM CDT Narrative [facility] - 01/14/2025 8:25 AM CDT COLLECTION REQUIREMENTS NOT MET. PATIENT ADVISED TO RETURN. Susana RAMIREZ SEND OUTS Final Resu lt Performing Organization Address [facility] de Phone Number [facility] [address] [place] [address], [place] [phone] [facility] [address] [place] [address] * IRON PLUS IRON BINDING CAP (01/13/2025 10:25 AM CDT) Pathologist [facility] IRON, TOTAL 64 40 - 190 mcg/dL [facility] IRON BINDING CAPACITY 282 250 - 450 mcg/dL (calc) [facility] % SATURATION 23 16 - 45 % (calc) [facility] Blood BLOOD SPECIMEN / Unknown 01/13/2025 10:25 AM CDT 01/13/2025 10:25 AM CDT Narrative [facility] - 01/18/2025 11:44 AM CDT COLLECTION REQUIREMENTS NOT MET. PATIENT ADVISED TO RETURN. Susana RAMIREZ CHEMISTRY Final Resu lt Performing Organization Address [facility]/[employer] de Phone Number [employer] [facility] [address] [place] [address], [place] [phone] [facility] [address] [place] [address] * (ABNORMAL) CBC AND DIFFERENTIAL (01/13/2025 10:25 AM CDT) WHITE BLOOD CELL COUNT 5.8 3.8 - 10.8 Thousand/u L [facility] RED BLOOD CELL COUNT 3.72(L) 3.80 - 5.10 Million/uL [facility] HEMOGLOBIN 12.4 11.7 - 15.5 g/dL [facility] HEMATOCRIT 36.7 35.0 - 45.0 % [facility] MCV 98.7 80.0 - 100.0 fL [facility] MCH 33.3(H) 27.0 - 33.0 pg [facility] MCHC 33.8 32.0 - 36.0 g/dL [facility] Comment: For adults, a slight decrease in the calculated MCHC value (in the range of 30 to 32 g/dL) is most likely not clinically significant; however, it should be interpreted with caution in correlation with other red cell parameters and the patient's clinical condition. RDW 15.7(H) 11.0 - 15.0 % [facility] PLATELET COUNT 191 140 - 400 Thousand/u L [facility] MPV 10.5 7.5 - 12.5 fL [facility] ABSOLUTE NEUTROPHILS 3,851 1,500 - 7,800 cells/uL [facility] ABSOLUTE LYMPHOCYTES 1,148 850 - 3,900 cells/uL [facility] ABSOLUTE MONOCYTES 644 200 - 950 cells/uL [facility] ABSOLUTE EOSINOPHILS 99 15 - 500 cells/uL [facility] ABSOLUTE BASOPHILS 58 0 - 200 cells/uL [facility] NEUTROPHILS 66.4 % [facility] LYMPHOCYTES 19.8 % [facility] MONOCYTES 11.1 % [facility] EOSINOPHILS 1.7 % [facility] BASOPHILS 1.0 % [facility] Blood BLOOD SPECIMEN / Unknown 01/13/2025 10:25 AM CDT 01/13/2025 10:25 AM CDT Narrative [facility] - 01/14/2025 3:14 AM CDT COLLECTION REQUIREMENTS NOT MET. PATIENT ADVISED TO RETURN. us Susana RAMIREZ HEMATOLOGY Final Resu lt [facility] [address] [facility] [place] [address], [place] [phone] [facility] [address] [facility] [address] * (ABNORMAL) FERRITIN (01/13/2025 10:25 AM CDT) FERRITIN 299(H) 16 - 232 ng/mL [facility] Blood BLOOD SPECIMEN / Unknown 01/13/2025 10:25 AM CDT 01/13/2025 10:25 AM CDT Narrative [facility] - 01/14/2025 8:25 AM CDT COLLECTION REQUIREMENTS NOT MET. PATIENT ADVISED TO RETURN. Susana RAMIREZ CHEMISTRY Final Resu lt Performing Organization Address [facility]/ZIP Co de Phone Number [facility] [address] [facility] [place] [address], [place] [phone] [facility] [address] [facility] [address] * (ABNORMAL) VITAMIN B12 (01/13/2025 10:25 AM CDT) Pathologist [facility] VITAMIN B12 >2000(H) 200 - 1100 pg/mL [facility] Blood BLOOD SPECIMEN / Unknown 01/13/2025 10:25 AM CDT 01/13/2025 10:25 AM CDT Narrative [facility] - 01/14/2025 8:25 AM CDT COLLECTION REQUIREMENTS NOT MET. PATIENT ADVISED TO RETURN. us Susana RAMIREZ CHEMISTRY Final Resu lt [facility] [address] [facility] [place] [address], [place] [phone] [facility] [address] [facility] [address] * (ABNORMAL) PROTIME-INR [[id number]] - Standing Order (01/13/2025 10:23 AM CDT) Only the most recent of2 resultswithin the time period is included. INR 1.1 <1.3 01/13/2025 3:15 PM CDT [facility] PROTIME 12.6(H) 10.6 - 12.4 sec 01/13/2025 3:15 PM CDT [facility] Blood BLOOD SPECIMEN / Unknown [facility] / Unknown 01/13/2025 10:23 AM CDT 01/13/2025 10:23 AM CDT Narrative [facility] - 01/13/2025 3:15 PM CDT Therapeutic Range 2.0-3.0 for most anticoagulated patients 2.5-3.5 or 4.0 for high risk patients The INR is only used for patients on stable oral anticoagulant therapy. It makes no significant contribution to the diagnosis or treatment of patients whose Protime is prolonged for other reasons. INR results are increased when heparin levels exceed 1.0 U/mL, which corresponds to an aPTT >125 seconds if the patient is on UFH. us Susana RAMIREZ HEMATOLOGY Final Resu lt [facility] [address] [place] [address], * (ABNORMAL) POCT Urinalysis Dipstick Only (01/13/2025 9:32 AM CDT) Pathologist [facility] PH 6.0 5.0 - 8.0 [facility] SPECIFIC GRAVITY 1.025 1.001 - 1.035 [facility] GLUCOSE NEGATIVE NEGATIVE [facility] BILIRUBIN 1+(A) NEGATIVE [facility] Comment: A false positive may be caused by the drug Lodine. For any presumptive positive bilirubin, consider confirmation by serum bilirubin if clinically indicated. KETONES TRACE(A) NEGATIVE [facility] OCCULT BLOOD TRACE(A) NEGATIVE [facility] PROTEIN 2+(A) NEGATIVE [facility] NITRITE POSITIVE(A) NEGATIVE [facility] LEUKOCYTE ESTERASE 3+(A) NEGATIVE [facility] Urine URINE SPECIMEN / Unknown 01/13/2025 9:32 AM CDT 01/13/2025 9:33 AM CDT Susana RAMIREZ URINE Final Resu lt Performing Organization Address City/[facility]/ZIP Co de Phone Number [facility] [address] [place] [address], [facility] [address] [place] [address] * (ABNORMAL) URINALYSIS MICROSCOPIC (01/13/2025 9:31 AM CDT) RBC 11-25(A) 0-2, None Seen /HPF 01/13/2025 4:02 PM CDT [facility] WBC >100(A) 0-2, 3-5, None Seen /HPF 01/13/2025 4:02 PM CDT [facility] BACTERIA Many(A) None Seen, Rare, Few Bacteria/ HPF 01/13/2025 4:02 PM CDT [facility] EPITHELIAL CELLS Few None Seen, Few Epi/HPF 01/13/2025 4:02 PM CDT [facility] HYALINE CASTS 3-5 0-2, 3-5 /LPF 01/13/2025 4:02 PM CDT [facility] CALCIUM OXALATE CRYSTALS Present(A) (none) 01/13/2025 4:02 PM CDT [facility] Urine URINE SPECIMEN / Unknown Non-Blood / Unknown 01/13/2025 9:31 AM CDT 01/13/2025 9:31 AM CDT Susana RAMIREZ URINE Final Resu lt [facility] [address] [place] [address], [place] * (ABNORMAL) URINE CULTURE (01/13/2025 9:31 AM CDT) CULTURE RESULT(A) 01/15/2025 6:54 AM CDT [facility] CULTURE >100,000 CFU/mL Escherichia coli 01/15/2025 6:54 AM CDT [facility] Urine URINE SPECIMEN / Unknown Non-Blood / Unknown 01/13/2025 9:31 AM CDT 01/13/2025 9:31 AM CDT Narrative Organism Antibiotic Method Susceptibility Escherichia coli TRIMETHOPRIM/SULF >=16/304: R Escherichia coli AMPICILLIN >=32: R Escherichia coli CEFAZOLIN 8: R Escherichia coli CEFAZOLIN-UC 8: S Comment:Cefazolin-UC interpretations are for therapy of uncomplicated UTIs due to E.coli, K.pneumoniae, or P.mirablis. Cefazolin breakpoint is used as a surrogate to predict results for the oral agents - cefdinir, cefuroxime, and cephalexin, when used for therapy of uncomplicated UTIs due to E coli, K, pneumoniae, and P. mirabilis. The FDA recommends cefadroxil susceptibility can be deduced from cefazolin. Escherichia coli GENTAMICIN >=16: R Escherichia coli CEFTRIAXONE <=0.25: S Escherichia coli CEFTAZIDIME <=0.5: S Escherichia coli LEVOFLOXACIN <=0.12: S Escherichia coli CIPROFLOXACIN <=0.06: S Escherichia coli PIPERACILLIN/TAZO <=4: S Escherichia coli AMPICILLIN/SULBACTAM 16: I Escherichia coli CEFEPIME <=0.12: S Escherichia coli MEROPENEM <=0.25: S Escherichia coli NITROFURANTOIN <=16: S us Susana RAMIREZ MICROBIOLOGY Final Resu lt [facility] [address] [place] [address], [place] * (ABNORMAL) LIPID PANEL W REFLEX MEASURED LDL (10/11/2024 3:24 PM CDT) Pathologist [facility] CHOLESTEROL, TOTAL 243(H) <200 mg/dL [facility] HDL CHOLESTEROL 64 > OR = 50 mg/dL [facility] TRIGLYCERIDES 153(H) <150 mg/dL [facility] LDL-CHOLESTEROL 151(H) mg/dL (calc) [facility] Comment: Reference range: <100 Desirable range <100 mg/dL for primary prevention; <70 mg/dL for patients with CHD or diabetic patients with > or = 2 CHD risk factors. LDL-C is now calculated using the Dottie calculation, which is a validated novel method providing better accuracy than the Friedewald equation in the estimation of LDL-C. Daryn SS et al. SWATHI. 2013;310(19): 1105-5132 (http://education.View Medical/faq/MSN351) CHOL/HDLC RATIO 3.8 <5.0 (calc) [facility] NON HDL CHOLESTEROL 179(H) <130 mg/dL (calc) [facility] Comment: For patients with diabetes plus 1 major ASCVD risk factor, treating to a non-HDL-C goal of <100 mg/dL (LDL-C of <70 mg/dL) is considered a therapeutic option. Blood BLOOD SPECIMEN / Unknown 10/11/2024 3:24 PM CDT 10/11/2024 3:24 PM CDT Susana RAMIREZ CHEMISTRY Final Resu lt [employer] [facility] [address] [place] [address], [facility] [address] [place] [address] * Pap Screening (12/07/2009 6:48 PM CDT) Pathologist [facility] CYTOLOGY CYTOPATHOLOGY REPORT [facility] Status: Final Status [id number] CLINICAL INFORMATION Last Date of LMP :10/12/2009 Last Pap Date :03/27/07 Last Pap Result :NIL ABN [place]/Bx Past 5 YRS :None Hormone Usage :None Menstrual Status :Abnormal bleeding [place]/Bx done today :No Additional Information :None given HPV Request :HPV if ASCUS SPECIMEN SOURCE :Cervical/vaginal ThinPrep Vial, screening SPECIMEN ADEQUACY :Satisfactory for evaluation Endocervical component present. INTERPRETATION/RES ULT Negative for intraepithelial lesion or malignancy (NIL) Cytology 1st Screener :nm Signed by :nm This specimen was screened by the FDA approved ThinPrep Imaging System and manually reviewed. NOTE: The Pap test is a screening technique, not a diagnostic procedure. It is used primarily to screen for squamous cancers and precursor lesions. Published studies have shown that it is subject to both false negative and false positive results. The pap test should not be used as the sole means to diagnose or exclude pre-malignant and malignant lesions. COLLECTED:12/07/09 ACCESSIONED: 12/10/09 SIGNED: 12/14/09 [facility] PAP [place] CODE NIL [facility] Cervical/Vaginal (Cervical/Vagina l) 12/07/2009 6:48 PM CDT 12/07/2009 6:46 PM CDT us Clari Miguel NP PATHOLOGY/CYTOLOG Y Final Result [facility] [place]NAL ZIP [id number] [address] from Last 3 Months or Most Recently Relevant to Health Maintenance [place] [address] [place] [address] [employer] [address] [place] WORKERS COMP Advance Directives * Full Code (Latest Code Status on File) Date Activated Date Inactivated Comments 10/12/2009 7:11 PM 10/15/2009 6:50 PM * Full Code Date Activated Date Inactivated Comments 10/12/2009 11:34 AM 10/12/2009 7:11 PM Care Teams Poultry Process Worker Relationship Specialty Start Date End Date Susana [place] [address] PCP - General Physician Rivet Sticker 10/11/24
--- OUTSIDE RECORDS SUMMARY | 2025-02-21 14:37 | XMS_ITS | Encounter Summary ---
Author Organization [facility] Address [address] [address] Phone Care Team Providers Care Senior Quality Manager Name Role Phone Luiz Winn MD Unavailable [phone] Esther Atwood PA-C Unavailable [phone] Denise Flynn APRN, FUNERAL HOME ASSISTANT Primary Care Provider Encounter Details Date Type Department Care Team (Late st Contact Info) Description 07/04/2022 Lab Requisition [facility] [address] [place] [address] Titus العلي MD [address] [place] [address] Contact with and (suspected) exposure [...] Sex Assigned at Female 06/22/2022 5:33 PM MEDICAL GENETICS DIRECTOR Legal Sex Female 11:12 PM MEDICAL GENETICS DIRECTOR Gender Identity Female 06/22/2022 5:33 PM MEDICAL GENETICS DIRECTOR Sexual Orientation Not on file 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 No / Unsure 07/02/2022 1:54 PM MEDICAL GENETICS DIRECTOR documented as of this encounter Plan of Treatment Not on file documented as of this encounter Visit Diagnoses Diagnosis Contact with and (suspected) exposure to other viral communicable diseases documented in this encounter Care Teams Senior Quality Manager Relationship Specialty Start Date End Date Denise Flynn, FABRIC PATTERN GRADER, FUNERAL HOME ASSISTANT [address] [place] [address] [phone] PCP - General Family Medicine 10/29/21 09/01/24 Luiz Winn MD [address] [place] [address] [phone] PC Team Family Medicine 02/22/21 Esther Atwood, PAChristianC [address] [place] [address] [phone] Cardiology 05/15/21 documented as of this encounter
--- OUTSIDE RECORDS SUMMARY | 2025-02-21 14:37 | XMS_ITS | Encounter Summary ---
Author Organization [facility] Address [address] [address] Phone Care Team Providers Care Die Press Operator Name Role Phone Luiz Winn MD Unavailable [phone] Esther Atwood PA-C Unavailable [phone] Denise Flynn APRN, GROUND SERVICES INSTRUCTOR Primary Care Provider Encounter Details Date Type Department Care Team (Late st Contact Info) Description 06/21/2022 Lab Requisition [facility] [address] [place] [address] Titus العلي MD [address] [place] [address] Contact with and (suspected) exposure [...] Sex Assigned at Female 06/22/2022 5:33 PM AIR BATTLE MANAGER Legal Sex Female 11:12 PM AIR BATTLE MANAGER Gender Identity Female 06/22/2022 5:33 PM AIR BATTLE MANAGER Sexual Orientation Not on file 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 No / Unsure 06/22/2022 7:48 AM AIR BATTLE MANAGER documented as of this encounter Plan of Treatment Not on file documented as of this encounter Procedures Procedure Name Priority Date/Time Associated Diagnosis Comments ROUTINE IN-HOUSE SARS-COV-2 RNA (COVID-19) Routine 06/28/2022 11:30 AM AIR BATTLE MANAGER Contact with and (suspected) exposure to other viral communicable diseases documented in this encounter Results * ROUTINE IN-HOUSE SARS-COV-2 RNA (COVID-19) (06/28/2022 11:30 AM AIR BATTLE MANAGER) SARS-CoV-2 RNA (COVID-19) Negative Negative/Not Detected 06/30/2022 8:16 PM AIR BATTLE MANAGER [facility] Comment:SARS-CoV-2 (COVID-19 ) target nucleic acids are not detected. COVID-19 can not be completely ruled out as sensitivity of the test depends on the timing of specimen collection and quality of the specimen. Swab NASAL / Unknown 06/28/2022 1 1:30 AM AIR BATTLE MANAGER 06/30/2022 5:54 PM AIR BATTLE MANAGER Narrative [facility] - 06/30/2022 8:16 PM AIR BATTLE MANAGER Test results should be used in combination with clinical observations, patient history and epidemiological information. Results from this test should not be used as the sole basis for treatment or other patient management decisions. Method Information This test uses the [employer] m SARS-CoV-2 assay to detect SARS-CoV-2 RNA on the [employer] m Real Time PCR System. It has received Emergency Use Authorization (EUA) by the U.S. Food and Drug Administration; performance characteristics have been verified by [facility] Link To Media in a manner consistent with CLIA requirements. Fact sheets for this Emergency Use Authorization (EUA) can be found at the following links: For Healthcare Providers: https://www.fda.gov/media/000582/download For Patients: https://www.fda.gov/media/977342/download Titus العلي MD EC MICROBIOLOGY - GENERAL ORDERA BLES Final Result [facility] [address] [place] [phone] [place] [address] documented in this encounter Visit Diagnoses Diagnosis Contact with and (suspected) exposure to other viral communicable diseases documented in this encounter Care Teams Die Press Operator Relationship Specialty Start Date End Date Denise Flynn, ROUTE SERVICE MANAGER, GROUND SERVICES INSTRUCTOR [address] [place] [address] [phone] PCP - General Family Medicine 10/29/21 09/01/24 Luiz Winn MD [address] [place] [id number] PC Team Family Medicine 02/22/21 Esther Atwood PA-C [address] [place] [phone] Cardiology 05/15/21 documented as of this encounter
--- OUTSIDE RECORDS SUMMARY | 2025-02-21 14:37 | XMS_ITS | Clinical Summary ---
Author Organization [facility] Address [address] [address] Phone Care Team Providers Care Forensic Anthropologist Name Role Phone Luiz Winn MD Unavailable [phone] Esther Atwood PA-C Unavailable Allergies Active Allergy Reactions Criticality Noted Date Comments Levofloxacin Hives 09/22/2012 Nitrofurantoin Hives 08/09/2004 Morphine Hives 09/22/2012 Promethazine Hcl Hives 08/09/2004 Sulfa Drugs Tachycardia 03/31/2018 Sores in mouth Medications * This document contains information received from the source organization and may not represent a complete record from that organization. Ventolin HFA 108 (90 Base) MCG/ACT inhalation aerosol INHALE 1 OR 2 PUFFS INTO THE LUNGS EVERY 6 HOURS NEEDED FOR WHEEZING, SHORTNESS OF BREATH, OR COUGH. SHAKE BEFORE USING 18 g 3 4 Active traZODone (Desyrel) 50 MG tablet Take 1 Tablet by mouth at bedtime. 90 Tablet 1 4 Active furosemide (Lasix) 20 MG tabletIndications: HFrEF (heart failure with reduced ejection fraction) ([facility]) Take 4 Tablets by mouth two times a day. Take extra ONLY when directed by [facility]. 250 Tablet 11 4 Active losartan (Cozaar) 25 MG tabletIndications: HFrEF (heart failure with reduced ejection fraction) (HCC) Take 1 Tablet by mouth one time a day. 90 Tablet 1 4 Active metoprolol succinate (Toprol-XL) 25 MG 24 hour extended-release tabletIndications: HFrEF (heart failure with reduced ejection fraction) (HCC) Take 1 Tablet by mouth one time a day. Do not crush or chew. 90 Tablet 1 4 Active potassium chloride CR (Klor-Con, K-Tab) 10 MEQ tabletIndications: Hypokalemia Take 2 Tablets by mouth one time a day. DO NOT CRUSH. 180 Tablet 1 4 Active rosuvastatin (Crestor) 40 MG tabletIndications: Hyperlipidemia, unspecified hyperlipidemia type Take 1 Tablet by mouth one time a day. 90 Tablet 1 4 Active famotidine (Pepcid) 20 MG tablet Take 1 Tablet by mouth at bedtime. 90 Tablet 1 4 Active FLUoxetine (PROzac) 40 MG capsule Take 1 Capsule by mouth one time a day. 90 Capsule 1 4 Active ALPRAZolam (Xanax) 0.5 MG tablet TAKE 1 TABLET BY MOUTH 3 TIMES A DAY NEEDED ANXIETY 75 Tablet 3 4 Active warfarin (Coumadin) 2.5 MG tablet Take 1.5 tabs (3.75 mg) by mouth daily OR as directed by [facility].' 135 Tablet 1 4 Active Active Problems Problem Noted Date Diagnosed Date Adjustment disorder with depressed mood 06/23/20 22 Recurrent depression 06/23/2022 Visual impairment 09/18/2021 Overview (09/18/2021): 2/2 to CVA Prediabetes 09/17/2021 Overview (09/17/2021): Patient met criteria for the diabetes prevention program for pre-diabetes patients. Problem p rediabetes added to patient's list. Reviewed and approved by [facility] in Spring 2020. Eligibility criteria: https://www.cdc.gov/diabetes/prevention/program-eligibility.html Please contact Dr. Winters with any concerns. Chronic systolic heart failure 04/10/2021 Overview (04/10/2021): Added automatically from request for surgery [id number] Cerebral vascular accident 02/22/2021 Subclinical hyperthyroidism 02/20/2019 Elevated liver enzymes 02/20/2019 Macrocytosis without anemia 02/20/2019 Seasonal allergic rhinitis due to pollen 017 Hair loss 01/08/2017 Obesity (BMI 30-39.9) 01/08/2017 Palpitations 01/08/2017 Hoarseness 01/08/2017 Migraine with aura 12/21/2012 Tobacco use disorder 11/10/2012 Insomnia 09/22/2012 Ocular migraine 09/22/2012 H/O atrial septal defect repair 09/22/2012 Overview (09/22/2012): 4 yo Encounters Date Type Department Care Team Description 12/26/2024 Refill [facility] [address] [place] [address] Denise Flynn, MIXING AND MOLDING MACHINE OPERATOR, DESCRIPTIVE CATALOG LIBRARIAN Refill Request (Famotidine, Fluoxetine) from Last 3 Months Immunizations Immunization Administration Dates Next Due COVID-19 Vaccine: Moderna Booster (18+ Yrs) Imm Clinic 08/07/2021 COVID-19 Vaccine: Moderna Dose 2 (18+ Yrs) Imm C linic 12/27/2020 COVID-19 mRNA Vaccine (Moderna - 18+ Yrs) 2020 Human Papilloma Virus 9 10/03/2021 Influenza Intradermal (18-64 Yrs) Flu Clinic 06/2012 Influenza [facility] Quadrivalent Preservative Free Influenza Quad Split 06/13/2017 Influenza Trivalent Preservative Free 05/08/2020 ,05/04/2018 Influenza Trivalent With Preservative 05/20/2012 ,06/19/2005 MMR 03/26/2004 Tdap (7 years and older) 12/17/2016 Surgical History Surgery Date Site/Laterality Comments KNEE SCOPE,DIAGNOSTIC 08/07/2004 Arthroscopy, Knee- ACL repair CYSTOSCOPY,REMV URETERAL STONE 02/15/2005 Right-sided ureteroscopy w/ ureteral stone extraction/manipulation. CERVICAL DISC SURGERY ASD REPAIR Repaired at 4 years of age. ENDOMETRIAL ABLATION 06/08/2018 Uterus/N/A Procedure: hydrothermal ablation, dilation and curettage; Surgeon: Mahendra Robin MD; Location: [facility] MAIN ORS CARDIAC CATHETERIZATION 05/03/2021 Left Procedure: [facility], CORONARY ANGIOGRAPHY; Surgeon: Priyanka Temple MD; Location: [facility] RECRUITMENT OFFICER Medical History Medical History Date Comments Calculus of kidney 08/07/2004 Nonspecific low blood pressure reading 5 Gout, unspecified 08/07/2004 With a questio n of uric acis stones Unspecified asthma(493.90) 07/26/2004 [place] Pneumonia due to unspecified Streptococcus 07/26/2004 Recurrent 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 ASD (atrial septal defect) Hypertension Ocular migraine Headache Family History Medical History Relation Comments Cancer Father Cardiovascular Disease Father Ophthalmic Disease Father Skin Condition Father psoriais Cardiovascular Disease Mother Heart dis ease, svt, MVP Genetic Disease Other Aunt has Downs S yndrome Lung Cancer Paternal Grandfather Rheumatoid Arthritis Paternal Grandfather Cancer Paternal Uncle 1 metastatic aleyda corby Lung Cancer Paternal Uncle 2 Neuro Disease Sister schwanomma Musculo-skeletal Disease Son Trigono cephaly Diabetes Negative Family Hx Thyroid Disease Negative Family Hx Relation Status Comments Father Mother Other Paternal Grandfather Paternal Uncle 1 Paternal Uncle 2 Sister Son Social History Tobacco Use Types Packs/Day Years Used Date Smoking Tobacco: Every Day Cigarettes 0.3 15 Started: 03/31/2016 Smokeless Tobacco: Never Tobacco Cessation:Ready to Q uit: No; Counseling Given: Yes Alcohol Use Standard Drinks/Week Comments Yes 0 (1 standard drink = 0.6 oz pure alcohol) 2 days per week, 2 per occasion [facility] Utilities Answer Date Recorded In the past 12 months has [employer], gas, oil, or water [employer] threatened to shut off services in your [...] any time in the past 12 m [facility], were you homeless or living in a [place] facility (including now)? 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 Soto hartman Delivery Location:[facility] Last Filed Vital Signs Vital Sign Reading Time Taken Comments Blood Pressure 117/67 12/03/2022 10:17 AM CDT Pulse 63 12/03/2022 10:17 AM CDT Temperature 36.7 C (98.1 F) 12/03/2022 10:17 AM CDT Respiratory Rate 16 12/03/2022 10:17 AM CDT Oxygen Saturation 98% 12/03/2022 10:17 AM CDT Inhaled Oxygen Concentration - - Weight 81.6 kg (180 lb) 07/18/2022 6:59 PM DIESEL ENGINEER Height 160 cm (5' 3) 07/18/2022 6:59 PM DIESEL ENGINEER Body Mass Index 31.89 07/18/2022 6:59 PM DIESEL ENGINEER Plan of Treatment Health Maintenance Due Date Last Done Comments CT Colonography 1976 Cologuard 1976 Colonoscopy 1976 Colorectal Cancer Screening 1976 FIT/FOBT 1976 Last pap w/o HPV Testing 1976 Sigmoidoscopy 1976 Hepatitis B Vaccine (Standin g Order) (1 of 3 - 19+ 3-dose series) 11/27/1995 Pneumococcal/PCV20 Vaccine: Pediatrics (2-5 yrs) and At-Risk Patients (6-49 yrs) (Standing Order) (1 of 2 - PCV) 11/27/1995 HPV Vaccine (Standing Order) (2 - 3-dose SCDM series) 10/31/2021 10/03/2021 MAMMO,SCREEN 12/11/2021 12/11/2020 Cervical Cancer Screening 10/05/2026 Last pap w/ HPV Testing 10/05/2026 10/05/2021 TETANUS (Standing Order) 12/17/2026 12/17/2016 PERTUSSIS (Standing Order) Completed 12/17/2016 Procedures Procedure Name Priority Date/Time Associated Diagnosis Comments MAMM KELLY SCREEN DIGITAL BILAT Routine 12/11/2020 4:34 PM CDT Visit for screening mammogram from Last 3 Months or Most Recently Relevant to Health Maintenance Results * MAMM KELLY SCREEN DIGITAL BILAT (12/11/2020 4:34 PM CDT) Anatomical Region Laterality Modality Breast Bilateral Mammography 12/11/2020 4:34 PM CDT Narrative 12/14/2020 1:08 PM CDT This document is currently in Final Status Exam MAMM KELLY SCREEN DIGITAL BILAT COMPARISON: Baseline screening. TECHNICAL: Standard MLO and CC views of both breasts acquired with 3D tomosynthesis. Computer-Aided Detection System was utilized. BREAST DENSITY: There are scattered areas of fibroglandular density. FINDINGS: No suspicious masses, architectural distortion, skin thickening, nipple retraction, or suspicious calcifications are appreciated. IMPRESSION: No suspicious radiographic findings. Routine followup recommended with mammogram in 1 year. BI-RADS 1: Negative. Dictated By: Janet Moreau MD 12/13/2020 3:18 PM Edited By: MAKAYLA 12/13/2020 3:18 PM Electronically Signed: Janet Moreau MD 12/14/2020 1:08 PM Procedure Note Janet Moreau MD - 12/14/2020 This document is currently in Final Status Exam MAMM KELLY SCREEN DIGITAL BILAT COMPARISON: Baseline screening. TECHNICAL: Standard MLO and CC views of both breasts acquired with 3Dtomosynthesis. Computer-Aided Detection System was utilized. BREAST DENSITY: There are scattered areas of fibroglandular density. FINDINGS: No suspicious masses, architectural distortion, skin thickening,nipple retraction, or suspicious calcifications are appreciated. IMPRESSION: No suspicious radiographic findings. Routine followuprecommended with mammogram in 1 year. BI-RADS 1: Negative. Dictated By: Janet Moreau MD 12/13/2020 3:18 PM Edited By: MAKAYLA 12/13/2020 3:18 PM Electronically Signed: Janet Moreau MD 12/14/2020 1:08 PM Berry Gray MD EC MAMMOGRAPHY ORDERABLES Final Result from Last 3 Months or Most Recently Relevant to Health Maintenance Insurance [place] [address] [place] [address] [facility] Advance Directives For more information, please contact: [phone] * Full Code (Latest Code Status on File) Date Activated Date Inactivated Comments 06/22/2022 7:01 PM 06/25/2022 8:01 PM * Full Code Date Activated Date Inactivated Comments 05/03/2021 9:13 AM 05/03/2021 5:13 PM * Full Code Date Activated Date Inactivated Comments 05/03/2021 6:19 AM 05/03/2021 9:13 AM * Full Code Date Activated Date Inactivated Comments 06/08/2018 2:26 PM 06/08/2018 7:41 PM * No Code Status Date Activated Date Inactivated Comments 08/21/2004 12:20 PM 08/21/2004 12:20 PM Care Teams Forensic Anthropologist Relationship Specialty Start Date End Date Luiz Winn MD [address] [place] [address] [phone] PC Team Family Medicine 02/22/21 Esther Atwood, PAChristianC [address] [place] [phone] Cardiology 05/15/21
--- OUTSIDE RECORDS SUMMARY | 2025-02-21 14:37 | XMS_ITS | Encounter Summary ---
Author Organization [facility] Address [address] [address] Phone Care Team Providers Care Sketcher Name Role Phone Luiz Winn MD Unavailable [phone] Esther Atwood PA-C Unavailable [phone] Denise Flynn APRN, REST ROOM MAID Primary Care Provider Encounter Details Date Type Department Care Team (Late st Contact Info) Description 06/28/2022 Lab Requisition [facility] [address] [place] [address] Titus العلي MD [address] [place] [address] Contact with and (suspected) exposure [...] Sex Assigned at Female 06/22/2022 5:33 PM MOBILE LAB TECHNICIAN Legal Sex Female 11:12 PM MOBILE LAB TECHNICIAN Gender Identity Female 06/22/2022 5:33 PM MOBILE LAB TECHNICIAN Sexual Orientation Not on file 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 No / Unsure 06/22/2022 7:48 AM MOBILE LAB TECHNICIAN documented as of this encounter Plan of Treatment Not on file documented as of this encounter Visit Diagnoses Diagnosis Contact with and (suspected) exposure to other viral communicable diseases documented in this encounter Care Teams Sketcher Relationship Specialty Start Date End Date Denise Flynn, BLOOD OR BLOOD BANK TECHNICIAN, REST ROOM MAID [address] [place] [address] [phone] PCP - General Family Medicine 10/29/21 09/01/24 Luiz Winn MD [address] [place] [address] [phone] PC Team Family Medicine 02/22/21 Esther Atwood, PAChristianC [address] [place] [phone] Cardiology 05/15/21 documented as of this encounter
--- OUTSIDE RECORDS SUMMARY | 2025-02-21 14:37 | XMS_ITS | Encounter Summary ---
Author Organization [facility] Address [address] [address] Phone Care Team Providers Care Mechanical Estimator Name Role Phone Luiz Winn MD Unavailable [phone] Esther Atwood PA-C Unavailable [phone] Denise Flynn APRN, CLIP RIVETER Primary Care Provider Encounter Details Date Type Department Care Team (Late st Contact Info) Description 06/13/2022 Lab Requisition [facility] [address] [place] [address] Titus العيل MD [address] [place] [address] Contact with and (suspected) exposure [...] Sex Assigned at Female 06/22/2022 5:33 PM SYSTEMS DEVELOPMENT CONSULTANT Legal Sex Female 11:12 PM SYSTEMS DEVELOPMENT CONSULTANT Gender Identity Female 06/22/2022 5:33 PM SYSTEMS DEVELOPMENT CONSULTANT Sexual Orientation Not on file 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 No / Unsure 06/11/2022 1:32 PM SYSTEMS DEVELOPMENT CONSULTANT documented as of this encounter Plan of Treatment Not on file documented as of this encounter Visit Diagnoses Diagnosis Contact with and (suspected) exposure to other viral communicable diseases documented in this encounter Care Teams Mechanical Estimator Relationship Specialty Start Date End Date Denise Flynn, REGULATORY AFFAIRS DIRECTOR, CLIP RIVETER [address] [place] [address] [phone] PCP - General Family Medicine 10/29/21 09/01/24 Luiz Winn MD [address] [place] [address] [phone] PC Team Family Medicine 02/22/21 Esther Atwood, PAChristianC [address] [place] [address] [phone] Cardiology 05/15/21 documented as of this encounter
--- OUTSIDE RECORDS SUMMARY | 2025-02-21 14:37 | XMS_ITS | Encounter Summary ---
Author Organization [facility] Address [address] [place] [address]. [place] [address] Care Team Providers Care Sanforizing Machine Operator Name Role Phone Kavitha Jama Primary Care Provide r Encounter Details Date Type Department Care Team (Late st Contact Info) Description 05/29/2021 [facility] Medical [facility]ice [facility] [address] [place], [place] [address] [facility] Social History Tobacco Use Types Packs/Day Years Used Date Smoking Tobacco: Never Assessed Comments No Sex and Gender Information Value Date Recorded Sex Assigned at Not on file Legal Sex Female 3:23 AM BREAD OVEN OPERATOR Gender Identity Not on file Sexual Orientation Not on file COVID-19 Exposure Response Date Recorded In the last month, have you been in contact with someone who was confirmed or suspected to have Coronavirus / COVID-19? No / Unsure 06/01/2021 10:20 AM CDT documented as of this encounter Plan of Treatment Not on file documented as of this encounter Visit Diagnoses Not on filedocumented in this encounter Care Teams Sanforizing Machine Operator Relationship Specialty [facility] [address] [place] [phone] PCP - General 02/10/21 documented as of this encounter
--- OUTSIDE RECORDS SUMMARY | 2025-02-21 14:37 | XMS_ITS | Clinical Summary ---
Author Organization [facility] Address [address] [place] [address] Care Team Providers Care Retirement Village Manager Name Role Phone Elsewhere, Pcp Primary Care Provider Unavailabl e Source Comments Patient records contain information from all sites at [facility]. For routine questions regarding patient records, call [phone] during business hours, M-F 8:00 AM - 5:00 PM Central Time. Record requests for emergency care only can be directed to [phone] at any time.[facility] Allergies Active Allergy Reactions Criticality Noted Date Comments Bupropion Other (see comments) 06/04/2007 head pressure head pressure Kiwi GI intolerance 09/27/2009 Levofloxacin Hives (Reselect Reaction) 09/27/2009 Makes stiff veins Morphine Hives (Reselect Reaction) 09/27/2009 Nalbuphine Nausea Only 09/27/2009 Nitrofurantoin Hives (Reselect Reaction) 08/09/2004 Promethazine Hives (Reselect Reaction) 08/09/2004 Makes stiff veins Sulfa (Sulfonamide Antibiotics) Hives (Reselect Reaction),Palpitation s 03/31/2018 Sores in mouth Medications * This document contains information received from the source organization and may not represent a complete record from that organization. warfarin (COUMADIN) 5 mg tablet DOSAGE CHANGE 1 Active traZODone (DESYREL) 50 mg tablet Take 1 tablet by mouth at bedtime. 1 Active albuterol (Ventolin HFA) 90 mcg/actuation inhaler INHALE 1 OR 2 PUFFS INTO THE LUNGS EVERY 6 HOURS NEEDED FOR WHEEZING, SHORTNESS OF BREATH, OR COUGH. SHAKE BEFORE USING 02/24/201 2 Active diphenhydrAMINE (BENADRYL) 25 mg tablet Take 25 mg by mouth as needed. Active acetaminophen (TYLENOL) 325 mg tablet Take 325 mg by mouth as needed for pain. Active FLUoxetine (PROzac) 40 mg capsule Take 40 mg by mouth daily. 2 Active furosemide (LASIX) 20 mg tablet Take 20 mg by mouth daily. 3 Active metoprolol succinate (TOPROL-XL) 25 mg 24 hr tablet Take 25 mg by mouth daily. 3 Active losartan (COZAAR) 25 mg tablet Take 25 mg by mouth daily. 3 Active warfarin (COUMADIN) 2.5 mg tablet Take one and one half tabs (3.75 mg) by mouth on Mondays and Fridays and one tab (2.5 mg) all other days of the week OR as directed by [facility]. 3 Active furosemide (LASIX) 20 mg tablet Take 80 mg by mouth. 3 Active rosuvastatin (CRESTOR) 40 mg tablet Take 40 mg by mouth. 3 Active ALPRAZolam (XANAX) 0.5 mg tablet Take 0.5 mg by mouth 3 (three) times a day as needed. 3 Active potassium chloride (KLORCON/K-TAB) 10 mEq ER tablet Take 10 mEq by mouth. 3 Active famotidine (PEPCID) 20 mg tablet Take 1 tablet by mouth at bedtime. 3 Active oxyCODONE (Roxicodone) 5 mg immediate release tabletIndicatio ns:Acute Pain Take 1 tablet (5 mg total) by mouth every 6 (six) hours as needed for pain (pain) Indication: Acute Pain. 12 tablet 4 Active Active Problems No known active problems Encounters Date Type Department Care Team Description 02/18/2025 10:32 PM CDT - 02/19/2025 1:10 AM CDT Emergency [facility] [address] [place] [phone] Markell Thomas M.D. Hypophosphatemia (Primary Dx); Headache Unspecified Discharge Disposition: Home or Self Care from Last 3 Months Family History Medical History Relation Name Comments Coronary artery disease Father Bharath Hyperlipidemia Father Bharath Depression Mother Cat Depression Sister Diogenes Migraines Sister Diogenes Anxiety disorder Son 1 Koko Depression Son 1 Koko Obesity Son 1 Koko ADD Son 2 Jase Relation Name Status Comments Father Bharath Mother Cat Sister Diogenes Son 1 Koko Son 2 Jase Social History Tobacco Use Types Packs/Day Years Used Date Smoking Tobacco: Every Day Cigarettes 0.5 25 Smokeless Tobacco: Never Tobacco Cessation:Ready to Q uit: Not Asked; Counseling Given: Not Answered Alcohol Use Standard Drinks/Week Comments Yes 0 [...] place to sleep or slept in a fci (including now)? No 03/23/2021 Education Answer Date Recorded What is the highest level of school you have completed or the highest degree you have received? Associate degree: academic program 03/23/2021 Comments No Sex and Gender Information Value Date Recorded Sex Assigned at Not on file Legal Sex Female 7:07 AM REGISTERED NURSE CARDIOVASCULAR [facility] Gender Identity Female 03/23/2021 11:55 PM CDT Sexual Orientation Straight 03/23/2021 11 :55 PM CDT Last Filed Vital Signs Vital Sign Reading Time Taken Comments Blood Pressure 100/73 02/19/2025 12:52 AM CDT Pulse 99 02/19/2025 12:52 AM CDT Temperature 36.7 C (98.1 F) 02/18/2025 10:33 PM CDT Respiratory Rate 16 02/19/2025 12:52 AM CDT Oxygen Saturation 99% 02/19/2025 12:52 AM CDT Inhaled Oxygen Concentration - - Weight 81 kg (178 lb 9.2 oz) 02/18/2025 10:33 PM CDT Height 160 cm (5' 3) 03/31/2024 1:36 AM CDT Body Mass Index 31.63 03/31/2024 1:36 AM CDT Plan of Treatment Health Maintenance Due Date Last Done Comments CT Colonography 1976 Colonoscopy 1976 FIT 1976 Hepatitis C Screening 1976 Tobacco Cessation counseling 1976 Hepatitis B Vaccines (1 of 3 - 19+ 3-dose series) 11/27/1995 Pneumococcal vaccine (0-49 years) (1 of 2 - PCV) 11/27/1995 Mammogram 12/11/2021 12/11/2020, 12/11/2020 COVID-19 Vaccine ( - season) 2024 08/07/2021, 12/27/2020, 11/12/2020 Depression Screening (Annual PHQ-2) 08/04/2024 Cervical/Vaginal Cancer Screening 10/03/2024 10/03/2021 Influenza Vaccine (#1) 2025 , 05/28/2019, 05/04/2018, Additional history exists Creatinine Level (Kidney Function Test) 02/18/2026 02/18/2025, 04/01/2024, 01/25/2023, Additional history exists Potassium Level 02/18/2026 02/18/2025, 03/05, 01/25/2023, Additional history exists Sodium Level 02/18/2026 02/18/2025, 03/05, 01/25/2023, Additional history exists DTaP,Tdap,and Td Vaccines (2 - Td or Tdap) 12/17/2026 12/17/2016 Lipid (Cholesterol) Screening 10/08/2027 10/07/2022, 11/13/2021, 02/11/2021, Additional history exists Cologuard 01/20/2028 01/19/2025 Colorectal Cancer Screening 01/20/2028 Fasting Glucose for Diabetes Screening 02/19/2028 02/18/2025, 10/11/2024, 04/01/2024, Additional history exists Hepatitis B Screening Discontinued 08/27/2018 IPV Vaccines Aged Out No longer eligi ble based on patient's age to complete this topic Medical Devices Implanted Type Area Electrician Device Identifier Shelf Expiration Date Model / Serial / Lot Hardware E.G. Pins/Screws/R ods Hardware e.g. pins/screws/ rods Neck Description:fusion Hardware E.G. Pins/Screws/R ods Hardware e.g. pins/screws/ rods Right: Knee Mesh Or Patch Mesh or Patch Heart Description:Had heart surger y/ thinks there may be mesh or wire placed from that Procedures Procedure Name Priority Date/Time Associated Diagnosis Comments CT HEAD NECK ANGIOGRAM WITH IV CONTRAST RAD - Semiurgent (Fast; most ED patients; some inpatients) 02/19/2025 12:13 AM CDT PHOSPHORUS (INORGANIC), S STAT 02/18/2025 11:09 PM CDT MAGNESIUM, S STAT 02/18/2025 11:09 PM CDT PROTHROMBIN TIME (PT), P STAT 02/18/2025 11:09 PM CDT HUMAN CHORIONIC GONADOTROPIN (HCG), MARCELINO, STAT 02/18/2025 11:09 PM CDT CBC WITH DIFFERENTIAL, B STAT 02/18/2025 11:09 PM CDT BASIC METABOLIC PANEL, S/P STAT 02/18/2025 11:09 PM CDT from Last 3 Months Results * CT Head Neck Angiogram with IV Contrast (02/19/2025 12:13 AM CDT) Anatomical Region Laterality Modality Head and Neck, Neuroradiolog y RST LOS, Neuroradiology [facility], Neuroradiology FLA LOS N/A Computed Tomography 02/19/2025 12:1 9 [...] hemodynamically significant stenosis, occlusion, or evidence ofdissection. Markell Thomas M.D. Judith CT PROCEDURE S Final Result * (ABNORMAL) Prothrombin Time (PT) (02/18/2025 11:09 PM CDT) Prothrombin Time, P 14.2(H) 9.4 - 12.5 sec 02/18/2025 11:31 PM CDT CNFL INR 1.3 0.9 - 1.1 02/18/2025 11:31 PM CDT CNFL Comment: ----ADDITIONAL INFORMATION---- Standard intensity warfarin therapeutic range: 2.0 to 3.0 High intensity warfarin therapeutic range: 2.5 to 3.5 Blood (Blood, Venous) 02/18/2025 11:09 PM CDT 02/18/2025 11:11 PM CDT Markell Thomas M.D. LAB BLOOD ADD-ON Final Result [facility] [address] [place] [address], [facility] CNFL [facility] [address] * (ABNORMAL) CBC with Differential, Blood (02/18/2025 11:09 PM CDT) Hemoglobin 12.4 11.6 - 15.0 g/dL 02/18/2025 [...] BLOOD ADD-ON Final Result Performing Organization Address City/[facility]/ZIP Co de Phone Number [address] [address], [address] [address] * hCG (Human Chorionic Gonadotropin), Quantitative, (02/18/2025 11:09 PM CDT) HCG, Quantitative, , P <1.0 <5 IU/L 02/18/2025 11:37 PM CDT CNFL Blood (Blood, Venous) 02/18/2025 11:09 PM CDT 02/18/2025 11:11 PM CDT us Markell Thomas M.D. LAB BLOOD ADD-ON Final Result [address] [address], [address] [address] * (ABNORMAL) Phosphorus Inorganic (02/18/2025 11:09 PM CDT) Phosphorus (Inorganic), P 2.1(L) 2.5 - 4.5 mg/dL 02/18/2025 11:28 PM CDT CNFL Blood (Blood, Venous) 02/18/2025 11:09 PM CDT 02/18/2025 11:11 PM CDT Markell Thomas M.D. LAB BLOOD ADD-ON Final Result [facility] [address] [place] [id number], [address] [address] * Magnesium (02/18/2025 11:09 PM CDT) Magnesium, P 1.8 1.7 - 2.3 mg/dL 02/18/2025 11:28 PM CDT CNFL Blood (Blood, Venous) 02/18/2025 11:09 PM CDT 02/18/2025 11:11 PM CDT Markell Thomas M.D. LAB BLOOD ADD-ON Final Result Performing Organization Address City/[facility]/ZIP Co de Phone Number [address] [address], [address] [address] * (ABNORMAL) Basic Metabolic Panel (02/18/2025 11:09 [...] Thomas M.D. LAB BLOOD ADD-ON Final Result [facility] [address] [place] [address], [place] CNFL [facility] in [address] [address] from Last 3 Months Insurance [place] Care Teams Retirement Village Manager Relationship Specialty Start Date End Date Elsewhere, Pcp PCP - General Family Medicine 03/14/21
--- OUTSIDE RECORDS SUMMARY | 2025-02-21 14:38 | XMS_ITS | Encounter Summary ---
Author Organization [facility] Address [address] [address] Phone Care Team Providers Care Watch Supervisor Name Role Phone Luiz Winn MD Unavailable [phone] Esther Atwood PA-C Unavailable [phone] Denise Flynn APRN, ABRADING MACHINE TENDER Primary Care Provider Reason for Visit * Reason Comments Refill Request ALPRAZolam Encounter Details Date Type Department Care Team ([facility] Contact Info) Description 08/14/2023 Refill [facility] [address] [place] [address] Denise Flynn APRN, ABRADING MACHINE TENDER [facility] [place] [address] Refill Request (ALPRAZolam ) Social [...] things needed for daily living? No 09/25/2021 EH IP Custom IPV Answer Date Recorded Do you feel UNSAFE in any of your personal relationships with your family members or any other acquaintances? No 2022 Comments No Sex and Gender Information Value Date Recorded Sex Assigned at Female 06/22/2022 5:33 PM PASTE UP WORKER Legal Sex Female 11:12 PM PASTE UP WORKER Gender Identity Female 06/22/2022 5:33 PM PASTE UP WORKER Sexual Orientation Not on file Occupation Industry [...] encounter Miscellaneous Notes * Telephone Encounter - Juanita Palafox RN - 08/14/2023 11:06 PM PASTE UP WORKER Requests for non-opioid controlled substances and gabapentin are pended as requested from the pharmacy. The dose, directions, refill and dispense amounts or other information was not reviewed by RN prior to routing. Requested Prescriptions Pending Prescriptions Disp Refills ??? ALPRAZolam (XANAX) 0.5 MG tablet [Pharmacy Med Name: ALPRAZOLAM 0.5MG TABS] 75 Tablet 0 Sig: TAKE ONE TABLET BY MOUTH THREE TIMES A DAY NEEDED FOR ANXIETY. NEEDS VISIT FOR FURTHER REFILLS Controlled Medication Failed - 08/14/2023 4:46 PM Failed - Controlled Medication: Route to provider E UP WORKER documented in this encounter Plan of Treatment Not on file documented as of this encounter Visit Diagnoses Not on filedocumented in this encounter Care Teams Watch Supervisor Relationship Specialty Start Date End Date Denise Flynn APRN, JO[facility] [address] [place] [phone] PCP - General Family Medicine 10/29/21 09/01/24 Luiz Winn MD [address] [place] [address] [phone] PC Team Family Medicine 02/22/21 Esther Atwood, PAChristianC [address] [place] [place] [phone] Cardiology 05/15/21 documented as of this encounter
--- NOTE | 2025-02-21 15:02 | ED.GENADULT ---
HPI - General Adult General Chief complaint: Nausea/Vomiting <Berry Lauren MD - Last Filed: 02/22/25 08:52> Stated complaint: Unsteady, nausea <Berry Lauren MD - Last Filed: 02/22/25 08:52> Time Seen by Provider: 02/21/25 14:44 <Berry Lauren MD - Last Filed: 02/22/25 08:52> History of Present Illness HPI narrative: 49-year-old woman presenting to the emergency department <Berry Lauren MD - Last Filed: 02/22/25 08:52> 49-year-old woman presenting to the emergency department with feeling unstable. She states she has not been feeling well for the last 2 days. However patient was seen in the [facility] 2 days ago and at that time she told the physician she had not been feeling well for 2 days. When I ask her how long it has been that she has not been feeling well she states ?I do not know?. She states that she feels unsteady, shaky. She has a headache that she describes as pressure in her head. Patient is quite concerned because she has a history of CVA several years ago. She states that she feels foggy, confused. No nausea or vomiting. No fevers or chills. She denies a cough. She does state that she has been using nitrous oxide fairly regularly for the last couple of days. Denies other drug use. Patient is chronically anticoagulated with Eliquis. States she has been taking her medications as prescribed. She denies chest pain. She denies abdominal discomfort. She states that she has not been able to walk straight and she has been using a cane, she cannot tell me how long she has been using a cane for. She denies palpitations, delusions or hallucinations, she does complain of bilateral feet tingling. Patient also tells me that she has a history of congestive heart failure and coronary artery disease status post [place]. medical records indicate history of hypertension, gout, tobacco use disorder, ASD status post closure at the age of 5. <Jennie Lozano MD - Last Filed: 02/21/25 17:13> Related Data Home medications: Home Medications ?Medication ?Instructions ?Recorded ?Confirmed alprazolam 0.5 mg tablet 0.5 mg PO QDAY 01/17/24 01/17/24 famotidine 20 mg tablet 20 mg PO QDAY 01/17/24 01/17/24 fluoxetine 20 mg capsule (Prozac) 20 mg PO QDAY 01/17/24 02/21/25 trazodone 50 mg tablet 50 mg PO QDAY 01/17/24 01/17/24 Eliquis 02/21/25 Wegovy 02/21/25 spironolactone 02/21/25 Previous Rx's ?Medication ?Instructions ?Recorded oxycodone 5 mg tablet 5 mg PO Q6H PRN pain #6 tabs 01/17/24 <Berry Lauren MD - Last Filed: 02/22/25 08:52> Allergies/adverse reactions: Allergies Allergy/AdvReac Type Severity Reaction Status Date / Time levofloxacin (From Levaquin) Allergy Verified 01/17/24 13:09 morphine Allergy Verified 01/17/24 13:09 Sulfa (Sulfonamide Allergy Verified 01/17/24 13:09 Antibiotics) <Berry Lauren MD - Last Filed: 02/22/25 08:52> Review of Systems Status of ROS: Reports: 10 or more systems reviewed and unremarkable except as noted in History and below <Jennie Lozano MD - Last Filed: 02/21/25 17:13> [facility] Medical History: Medical History Migraines ?G43.909 - Migraine, unspecified, not intractable, without status migrainosus (ICD-10) CVA (cerebral vascular accident) ?I63.9 - Cerebral infarction, unspecified (ICD-10) Heart failure ?I50.9 - Heart failure, unspecified (ICD-10) Myocardial infarction ?I21.9 - Acute myocardial infarction, unspecified (ICD-10) <Berry Lauren MD - Last Filed: 02/22/25 08:52> Social History: Social History Smoking Status: Unknown if ever smoked Non-prescribed substance use: other Non-prescribed substance use details: Possible inhalant use <Berry Lauren MD - Last Filed: 02/22/25 08:52> Exam Narrative: Exam Narrative: Well-nourished well-developed patient, tearful on and off. Alert and oriented x3. Answers questions appropriately. Mood and affect are appropriate. Thoughts are goal oriented and rational. No tangential or magical thinking noted. Patient speaks in full sentences without needing to catch her breath. Speech is slightly pressured but she can be redirected and interrupted with persistence. Patient has a fine tremor at baseline. HEENT: Normocephalic atraumatic. Pupils are equally round reactive to light. Extraocular muscles are intact. Conjunctivae are moist without any icterus noted. Moist mucous membranes. Posterior pharynx is normal. Neck is soft without any lymphadenopathy or thyromegaly. No masses are appreciated. TMs are clear bilaterally. Cardiovascular: Heart is regular rate and rhythm S1 and S2 are present without any murmurs. Lungs: Clear to auscultation bilaterally no wheezes rhonchi or rales are appreciated. Patient takes deep breaths without any discomfort. Abdomen: Soft and nontender nondistended with normal bowel sounds. Extremities: Bilateral lower extremities are without edema. Normal DP and PT pulses. Skin: Well perfused without any obvious rashes. Strength is 5/5 of the upper and lower extremities-both distal and proximal muscle groups. Reflexes are 2+ and symmetric at the knees. Cranial nerves 3-12 are grossly normal. [id number] is normal. There is no nystagmus either horizontally or vertically. <Jennie Lozano MD - Last Filed: 02/21/25 17:13> Const: Vital Signs, click to edit/add: Vital Signs - 24 hr 02/21/25 14:46 02/21/25 16:21 02/21/25 16:22 Temperature 98.8 F Pulse Rate Pulse Rate [Pulse Oximeter] 73 Respiratory Rate 18 Blood Pressure 122/75 Blood Pressure [Ri ght Forearm] 99/67 Pulse Oximetry 96 97 Oxygen Delivery Me thod Room Air 02/21/25 16:30 02/21/25 17:30 02/21/25 17:52 Temperature Pulse Rate 65 58 L 52 L Pulse Rate [Pulse Oximeter] Respiratory Rate 18 Blood Pressure 107/55 L Blood Pressure [Ri ght Forearm] Pulse Oximetry 100 100 99 Oxygen Delivery Me thod 02/21/25 17:53 02/21/25 18:00 02/21/25 18:15 Temperature Pulse Rate 59 L 59 L 76 Pulse Rate [Pulse Oximeter] Respiratory Rate 12 Blood Pressure Blood Pressure [Ri ght Forearm] Pulse Oximetry 100 100 100 Oxygen Delivery Me thod <Berry Lauren MD - Last Filed: 02/22/25 08:52> Vital Signs, click to edit/add: Vital Signs - 24 hr 02/21/25 14:46 02/21/25 16:21 02/21/25 16:22 Temperature 98.8 F Pulse Rate Pulse Rate [Pulse Oximeter] 73 Respiratory Rate 18 Blood Pressure 122/75 Blood Pressure [Ri ght Forearm] 99/67 Pulse Oximetry 96 97 Oxygen Delivery Me thod Room Air 02/21/25 16:30 02/21/25 17:30 02/21/25 17:52 Temperature Pulse Rate 65 58 L 52 L Pulse Rate [Pulse Oximeter] Respiratory Rate 18 Blood Pressure 107/55 L Blood Pressure [Ri ght Forearm] Pulse Oximetry 100 100 99 Oxygen Delivery Me thod 02/21/25 17:53 02/21/25 18:00 02/21/25 18:15 Temperature Pulse Rate 59 L 59 L 76 Pulse Rate [Pulse Oximeter] Respiratory Rate 12 Blood Pressure Blood Pressure [Ri ght Forearm] Pulse Oximetry 100 100 100 Oxygen Delivery Me thod <Jennie Lozano MD - Last Filed: 02/21/25 17:13> Vital Signs, click to edit/add: Vital Signs - 24 hr 02/21/25 14:46 02/21/25 16:21 02/21/25 16:22 Temperature 98.8 F Pulse Rate Pulse Rate [Pulse Oximeter] 73 Respiratory Rate 18 Blood Pressure 122/75 Blood Pressure [Ri ght Forearm] 99/67 Pulse Oximetry 96 97 Oxygen Delivery Me thod Room Air 02/21/25 16:30 02/21/25 17:30 02/21/25 17:52 Temperature Pulse Rate 65 58 L 52 L Pulse Rate [Pulse Oximeter] Respiratory Rate 18 Blood Pressure 107/55 L Blood Pressure [Ri ght Forearm] Pulse Oximetry 100 100 99 Oxygen Delivery Me thod 02/21/25 17:53 02/21/25 18:00 02/21/25 18:15 Temperature Pulse Rate 59 L 59 L 76 Pulse Rate [Pulse Oximeter] Respiratory Rate 12 Blood Pressure Blood Pressure [Ri ght Forearm] Pulse Oximetry 100 100 100 Oxygen Delivery Me thod <Scott Shipley DO - Last Filed: 02/21/25 18:22> Course Course ED Course: Looking through patient's records from her ED visit on 02/18/2025 she did have blood work done which was unremarkable. She also had a head CT, head and neck CTA both of which were unremarkable. Start the patient on 500 mL of normal saline over an hour. MRI shows old infarcts that are growing in size since the last MRI in 2009. Nothing appears acute. UA shows 3+ blood-patient is currently on her menses. Remainder of blood work pending-will sign off to oncoming provider. <Jennie Lozano MD - Last Filed: 02/21/25 17:13> Vital Signs Vital signs: Initial Vital Signs Temperature 98.8 F 02/21/25 14:46 Temperature Source Temporal Artery Scan 02/21/25 14:46 Pulse Rate 73 02/21/25 14:46 Respiratory Rate 18 02/21/25 14:46 Blood Pressure 99/67 02/21/25 14:46 Blood Pressure Mean 77 02/21/25 14:46 Blood Pressure Position Sitting 02/21/25 14:46 Pulse Oximetry 96 02/21/25 14:46 Oxygen Delivery Method Room Air 02/21/25 14:46 Vital Signs Temperature 98.8 F 02/21/25 14:46 Pulse Rate 73 02/21/25 14:46 Respiratory Rate 18 02/21/25 14:46 Blood Pressure 99/67 02/21/25 14:46 Pulse Oximetry 96 02/21/25 14:46 Oxygen Delivery Method Room Air 02/21/25 14:46 Temperature 98.8 F 02/21/25 14:46 Pulse Rate 76 02/21/25 18:15 Respiratory Rate 12 02/21/25 18:15 Blood Pressure 107/55 L 02/21/25 17:52 Pulse Oximetry 100 02/21/25 18:15 Oxygen Delivery Method Room Air 02/21/25 14:46 <Berry Lauren MD - Last Filed: 02/22/25 08:52> Initial Vital Signs Temperature 98.8 F 02/21/25 14:46 Temperature Source Temporal Artery Scan 02/21/25 14:46 Pulse Rate 73 02/21/25 14:46 Respiratory Rate 18 02/21/25 14:46 Blood Pressure 99/67 02/21/25 14:46 Blood Pressure Mean 77 02/21/25 14:46 Blood Pressure Position Sitting 02/21/25 14:46 Pulse Oximetry 96 02/21/25 14:46 Oxygen Delivery Method Room Air 02/21/25 14:46 Vital Signs Temperature 98.8 F 02/21/25 14:46 Pulse Rate 73 02/21/25 14:46 Respiratory Rate 18 02/21/25 14:46 Blood Pressure 99/67 02/21/25 14:46 Pulse Oximetry 96 02/21/25 14:46 Oxygen Delivery Method Room Air 02/21/25 14:46 Temperature 98.8 F 02/21/25 14:46 Pulse Rate 76 02/21/25 18:15 Respiratory Rate 12 02/21/25 18:15 Blood Pressure 107/55 L 02/21/25 17:52 Pulse Oximetry 100 02/21/25 18:15 Oxygen Delivery Method Room Air 02/21/25 14:46 <Jennie Lozano MD - Last Filed: 02/21/25 17:13> Initial Vital Signs Temperature 98.8 F 02/21/25 14:46 Temperature Source Temporal Artery Scan 02/21/25 14:46 Pulse Rate 73 02/21/25 14:46 Respiratory Rate 18 02/21/25 14:46 Blood Pressure 99/67 02/21/25 14:46 Blood Pressure Mean 77 02/21/25 14:46 Blood Pressure Position Sitting 02/21/25 14:46 Pulse Oximetry 96 02/21/25 14:46 Oxygen Delivery Method Room Air 02/21/25 14:46 Vital Signs Temperature 98.8 F 02/21/25 14:46 Pulse Rate 73 02/21/25 14:46 Respiratory Rate 18 02/21/25 14:46 Blood Pressure 99/67 02/21/25 14:46 Pulse Oximetry 96 02/21/25 14:46 Oxygen Delivery Method Room Air 02/21/25 14:46 Temperature 98.8 F 02/21/25 14:46 Pulse Rate 76 02/21/25 18:15 Respiratory Rate 12 02/21/25 18:15 Blood Pressure 107/55 L 02/21/25 17:52 Pulse Oximetry 100 02/21/25 18:15 Oxygen Delivery Method Room Air 02/21/25 14:46 <DO Christian Pineda Last Filed: 02/21/25 18:22> Medications Administered Medications: Discontinued Medications Generic Name Dose Route Start Last Admin Trade Name Freq PRN Reason Stop Dose Admin Acetaminophen 1,000 mg 02/21/25 17:09 02/21/25 17:17 Acetaminophen 500 Mg Tablet PO 02/21/25 17:10 1,000 mg ONCE ONE Administration Sodium Chloride 500 mls @ 500 mls/hr 02/21/25 15:23 02/21/25 17:54 0.9 % Sodium Chloride 500 Ml IV 02/21/25 16:22 Infused .Q1H ONE Infusion <Berry Lauren MD - Last Filed: 02/22/25 08:52> Discontinued Medications Generic Name Dose Route Start Last Admin Trade Name Freq PRN Reason Stop Dose Admin Acetaminophen 1,000 mg 02/21/25 17:09 02/21/25 17:17 Acetaminophen 500 Mg Tablet PO 02/21/25 17:10 1,000 mg ONCE ONE Administration Sodium Chloride 500 mls @ 500 mls/hr 02/21/25 15:23 02/21/25 17:54 0.9 % Sodium Chloride 500 Ml IV 02/21/25 16:22 Infused .Q1H ONE Infusion <Jennie Lozano MD - Last Filed: 02/21/25 17:13> Discontinued Medications Generic Name Dose Route Start Last Admin Trade Name Freq PRN Reason Stop Dose Admin Acetaminophen 1,000 mg 02/21/25 17:09 02/21/25 17:17 Acetaminophen 500 Mg Tablet PO 02/21/25 17:10 1,000 mg ONCE ONE Administration Sodium Chloride 500 mls @ 500 mls/hr 02/21/25 15:23 02/21/25 17:54 0.9 % Sodium Chloride 500 Ml IV 02/21/25 16:22 Infused .Q1H ONE Infusion <Scott Shipley DO - Last Filed: 02/21/25 18:22> Medical Decision Making MDM Narrative Medical decision making narrative: Patient signed out to me pending lab work. Lab work returned showing no acute concerning abnormalities. She does have elevated LFTs. There relatively mildly elevated. Not having any GI symptoms. Based on epic review her liver function tests were normal back and 10/11/2024. Is recommended she follow up outpatient with her primary care provider about these elevated LFTs. Troponin within normal limits. Slightly elevated BNP but no signs of acute heart failure. At this time I do believe she is safe for discharge. She is agreeable to this plan. <Scott Shipley, - Last Filed: 02/21/25 18:22> Lab Data Labs: Lab Results 02/21/25 02/21/25 Range/Units 15:23 16:58 WBC 6.65 (4.50-11.00) K/uL RBC 3.49 L (4.00-5.20) m/uL Hgb 12.2 (12.0-16.0) gm/dL Hct 34.7 (33.0-51.0) % MCV 99 (80-100) fL MCH 35 H (26-34) pg MCHC 35 (32-36) gm/dL RDW Coeff of Lyla 15.8 H (11.5-15.5) % Plt Count 189 (140-440) K/uL Neut % (Auto) 69.3 (42.0-72.0) % Lymph % (Auto) 21.8 (20-44) % [place] % (Auto) 6.8 (0.0-11.0) % Eos % (Auto) 0.8 (0.0-7.0) % Baso % (Auto) 0.5 (0.0-3.0) % Neut # (Auto) 4.62 (1.7-7.0) K/uL Lymph # (Auto) 1.45 (0.90-2.90) K/uL [place] # (Auto) 0.50 (0.00-0.90) K/UL Eos # (Auto) 0.05 (0.00-0.50) K/uL Baso # (Auto) 0.03 (0.00-0.30) K/uL Abs Immat Gran (auto) 0.05 (0.00-0.30) K/uL Imm/Tot Granulo (auto) 0.8 % Sodium 136 (135-149) mmol/L Potassium 3.4 L (3.6-5.1) mmol/L Chloride 104 (96-114) mmol/L Carbon Dioxide 23 (20-32) mmol/L Anion Gap 9 (7-15) mEq/L BUN 9 (5-24) mg/dL Creatinine 0.7 (0.5-1.5) mg/dL Estimated Creat Clear 77.73 Estimated GFR 107 ml/min Glucose 87 (60-115) mg/dL Calcium 9.4 (8.4-10.6) mg/dL Magnesium 1.9 (1.5-2.6) mg/dL Total Bilirubin 2.2 H (0.1-1.5) mg/dL Direct Bilirubin 0.2 (0.0-0.5) mg/dL AST 66 H (12-35) U/L ALT 52 H (4-35) U/L Alkaline Phosphatase 49 (40-150) U/L Troponin I < 0.01 (0.01-0.04) ng/mL C-Reactive Protein 1.0 (0.5-1.0) mg/dL NT-Pro-B Natriuret Pep 565 H (See Note) pg/mL Total Protein 7.7 (6.0-8.3) g/dL Albumin 4.5 (3.3-5.0) g/dL TSH 1.110 (0.270-4.20) uIU/mL Urine Color Yellow (Yellow) Urine Appearance Clear (Clear) Urine pH 6.0 (5.0-8.5) Ur Specific [place] <= 1.005 (1.000-1.030) Urine Protein Trace A (Negative) Urine Glucose (UA) Negative (Negative) Urine Ketones 1+ A (Negative) Urine Blood 3+ A (Negative) Urine Nitrite Negative (Negative) Urine Bilirubin Negative (Negative) Urine Urobilinogen 1.0 (0.2-1.0) Ur Leukocyte Esterase 1+ A (Negative) Urine RBC 2-5 A (0-2) Urine WBC 2-5 (0-5) Ur Squamous Epith Cells Few (None-Few) Amorphous Sediment Few A (None) Urine Bacteria Few A (None) Urine HCG, Qual Negative (Negative) Salicylates < 1.0 L (1.0-10) mg/dL Urine Opiates Screen Negative (Negative) Ur Oxycodone Screen Negative (Negative) Urine Methadone Screen Negative (Negative) Acetaminophen < 10.0 (10.0-30.0) ug/mL Ur Barbiturates Screen Negative (Negative) U Tricyclic Antidepress Negative (Negative) Ur Phencyclidine Scrn Negative (Negative) Ur Amphetamines Screen Negative (Negative) U Methamphetamines Scrn Negative (Negative) U Benzodiazepines Scrn POSITIVE A (Negative) Urine Cocaine Screen Negative (Negative) U Marijuana (THC) Screen Negative (Negative) Ur Drug Screen Comment See Note Ethyl Alcohol < 0.01 (0.01-0.03) % <Berry Lauren MD - Last Filed: 02/22/25 08:52> Lab Results 02/21/25 02/21/25 Range/Units 15:23 16:58 WBC 6.65 (4.50-11.00) K/uL RBC 3.49 L (4.00-5.20) m/uL Hgb 12.2 (12.0-16.0) gm/dL Hct 34.7 (33.0-51.0) % MCV 99 (80-100) fL MCH 35 H (26-34) pg MCHC 35 (32-36) gm/dL RDW Coeff of Lyla 15.8 H (11.5-15.5) % Plt Count 189 (140-440) K/uL Neut % (Auto) 69.3 (42.0-72.0) % Lymph % (Auto) 21.8 (20-44) % [place] % (Auto) 6.8 (0.0-11.0) % Eos % (Auto) 0.8 (0.0-7.0) % Baso % (Auto) 0.5 (0.0-3.0) % Neut # (Auto) 4.62 (1.7-7.0) K/uL Lymph # (Auto) 1.45 (0.90-2.90) K/uL [place] # (Auto) 0.50 (0.00-0.90) K/UL Eos # (Auto) 0.05 (0.00-0.50) K/uL Baso # (Auto) 0.03 (0.00-0.30) K/uL Abs Immat Gran (auto) 0.05 (0.00-0.30) K/uL Imm/Tot Granulo (auto) 0.8 % Sodium 136 (135-149) mmol/L Potassium 3.4 L (3.6-5.1) mmol/L Chloride 104 (96-114) mmol/L Carbon Dioxide 23 (20-32) mmol/L Anion Gap 9 (7-15) mEq/L BUN 9 (5-24) mg/dL Creatinine 0.7 (0.5-1.5) mg/dL Estimated Creat Clear 77.73 Estimated GFR 107 ml/min Glucose 87 (60-115) mg/dL Calcium 9.4 (8.4-10.6) mg/dL Magnesium 1.9 (1.5-2.6) mg/dL Total Bilirubin 2.2 H (0.1-1.5) mg/dL Direct Bilirubin 0.2 (0.0-0.5) mg/dL AST 66 H (12-35) U/L ALT 52 H (4-35) U/L Alkaline Phosphatase 49 (40-150) U/L Troponin I < 0.01 (0.01-0.04) ng/mL C-Reactive Protein 1.0 (0.5-1.0) mg/dL NT-Pro-B Natriuret Pep 565 H (See Note) pg/mL Total Protein 7.7 (6.0-8.3) g/dL Albumin 4.5 (3.3-5.0) g/dL TSH 1.110 (0.270-4.20) uIU/mL Urine Color Yellow (Yellow) Urine Appearance Clear (Clear) Urine pH 6.0 (5.0-8.5) Ur Specific [place] <= 1.005 (1.000-1.030) Urine Protein Trace A (Negative) Urine Glucose (UA) Negative (Negative) Urine Ketones 1+ A (Negative) Urine Blood 3+ A (Negative) Urine Nitrite Negative (Negative) Urine Bilirubin Negative (Negative) Urine Urobilinogen 1.0 (0.2-1.0) Ur Leukocyte Esterase 1+ A (Negative) Urine RBC 2-5 A (0-2) Urine WBC 2-5 (0-5) Ur Squamous Epith Cells Few (None-Few) Amorphous Sediment Few A (None) Urine Bacteria Few A (None) Urine HCG, Qual Negative (Negative) Salicylates < 1.0 L (1.0-10) mg/dL Urine Opiates Screen Negative (Negative) Ur Oxycodone Screen Negative (Negative) Urine Methadone Screen Negative (Negative) Acetaminophen < 10.0 (10.0-30.0) ug/mL Ur Barbiturates Screen Negative (Negative) U Tricyclic Antidepress Negative (Negative) Ur Phencyclidine Scrn Negative (Negative) Ur Amphetamines Screen Negative (Negative) U Methamphetamines Scrn Negative (Negative) U Benzodiazepines Scrn POSITIVE A (Negative) Urine Cocaine Screen Negative (Negative) U Marijuana (THC) Screen Negative (Negative) Ur Drug Screen Comment See Note Ethyl Alcohol < 0.01 (0.01-0.03) % <Jennie Lozano MD - Last Filed: 02/21/25 17:13> Lab Results 02/21/25 02/21/25 Range/Units 15:23 16:58 WBC 6.65 (4.50-11.00) K/uL RBC 3.49 L (4.00-5.20) m/uL Hgb 12.2 (12.0-16.0) gm/dL Hct 34.7 (33.0-51.0) % MCV 99 (80-100) fL MCH 35 H (26-34) pg MCHC 35 (32-36) gm/dL RDW Coeff of Lyla 15.8 H (11.5-15.5) % Plt Count 189 (140-440) K/uL Neut % (Auto) 69.3 (42.0-72.0) % Lymph % (Auto) 21.8 (20-44) % [place] % (Auto) 6.8 (0.0-11.0) % Eos % (Auto) 0.8 (0.0-7.0) % Baso % (Auto) 0.5 (0.0-3.0) % Neut # (Auto) 4.62 (1.7-7.0) K/uL Lymph # (Auto) 1.45 (0.90-2.90) K/uL [place] # (Auto) 0.50 (0.00-0.90) K/UL Eos # (Auto) 0.05 (0.00-0.50) K/uL Baso # (Auto) 0.03 (0.00-0.30) K/uL Abs Immat Gran (auto) 0.05 (0.00-0.30) K/uL Imm/Tot Granulo (auto) 0.8 % Sodium 136 (135-149) mmol/L Potassium 3.4 L (3.6-5.1) mmol/L Chloride 104 (96-114) mmol/L Carbon Dioxide 23 (20-32) mmol/L Anion Gap 9 (7-15) mEq/L BUN 9 (5-24) mg/dL Creatinine 0.7 (0.5-1.5) mg/dL Estimated Creat Clear 77.73 Estimated GFR 107 ml/min Glucose 87 (60-115) mg/dL Calcium 9.4 (8.4-10.6) mg/dL Magnesium 1.9 (1.5-2.6) mg/dL Total Bilirubin 2.2 H (0.1-1.5) mg/dL Direct Bilirubin 0.2 (0.0-0.5) mg/dL AST 66 H (12-35) U/L ALT 52 H (4-35) U/L Alkaline Phosphatase 49 (40-150) U/L Troponin I < 0.01 (0.01-0.04) ng/mL C-Reactive Protein 1.0 (0.5-1.0) mg/dL NT-Pro-B Natriuret Pep 565 H (See Note) pg/mL Total Protein 7.7 (6.0-8.3) g/dL Albumin 4.5 (3.3-5.0) g/dL TSH 1.110 (0.270-4.20) uIU/mL Urine Color Yellow (Yellow) Urine Appearance Clear (Clear) Urine pH 6.0 (5.0-8.5) Ur Specific [place] <= 1.005 (1.000-1.030) Urine Protein Trace A (Negative) Urine Glucose (UA) Negative (Negative) Urine Ketones 1+ A (Negative) Urine Blood 3+ A (Negative) Urine Nitrite Negative (Negative) Urine Bilirubin Negative (Negative) Urine Urobilinogen 1.0 (0.2-1.0) Ur Leukocyte Esterase 1+ A (Negative) Urine RBC 2-5 A (0-2) Urine WBC 2-5 (0-5) Ur Squamous Epith Cells Few (None-Few) Amorphous Sediment Few A (None) Urine Bacteria Few A (None) Urine HCG, Qual Negative (Negative) Salicylates < 1.0 L (1.0-10) mg/dL Urine Opiates Screen Negative (Negative) Ur Oxycodone Screen Negative (Negative) Urine Methadone Screen Negative (Negative) Acetaminophen < 10.0 (10.0-30.0) ug/mL Ur Barbiturates Screen Negative (Negative) U Tricyclic Antidepress Negative (Negative) Ur Phencyclidine Scrn Negative (Negative) Ur Amphetamines Screen Negative (Negative) U Methamphetamines Scrn Negative (Negative) U Benzodiazepines Scrn POSITIVE A (Negative) Urine Cocaine Screen Negative (Negative) U Marijuana (THC) Screen Negative (Negative) Ur Drug Screen Comment See Note Ethyl Alcohol < 0.01 (0.01-0.03) % <Scott Shipley DO - Last Filed: 02/21/25 18:22> Discharge Plan Discharge Clinical Impression: Feeling unwell, Headache <Berry Lauren MD - Last Filed: 02/22/25 08:52> Patient Disposition: Home, Self-Care <Berry Lauren MD - Last Filed: 02/22/25 08:52> Condition: Stable <Berry Lauren MD - Last Filed: 02/22/25 08:52> Additional Instructions: No evidence of new stroke was seen on your imaging today. I do recommend you follow-up with your primary care provider as well as a neurologist to discuss your symptoms. Refrain from doing any more nitrous oxide as this is likely contributing to your symptoms. <Berry Lauren MD - Last Filed: 02/22/25 08:52> Prescriptions: No Action fluoxetine [Prozac] 20 mg capsule 20 mg PO QDAY alprazolam 0.5 mg tablet 0.5 mg PO QDAY trazodone 50 mg tablet 50 mg PO QDAY famotidine 20 mg tablet 20 mg PO QDAY oxycodone 5 mg tablet 5 mg PO Q6H PRN (Reason: pain) Qty: 6 0RF Eliquis Wegovy spironolactone <Berry Lauren MD - Last Filed: 02/22/25 08:52> Follow Up/Referrals: Effie Schmitt MD [Staff Physician, Family Practice] <Berry Lauren MD - Last Filed: 02/22/25 08:52> Stand Alone Forms: My[facility] Info Instructions <Berry Lauren MD - Last Filed: 02/22/25 08:52>
--- NOTE | 2025-02-21 15:18 | CRLHL7_ITS ---
For Patients: As a result of the Century Cures Act, medical imaging exams and procedure reports are released immediately into your electronic medical record. You may view this report before your referring provider. If you have questions, please contact your health care provider. Indication: Gait instability. Technique: Multiplanar multisequence noncontrast MR images of the brain. Comparison: MRI brain 01/09/2010. Findings: [id number] diffuse cerebral volume loss has progressed. No mass effect or midline shift. New moderate chronic infarction within the superior left occipital lobe. New moderate chronic infarctions involving the right temporoparietal region as well as the right temporooccipital region associated with ex vacuo dilatation of the right lateral ventricle. Susceptibility in the infarct beds may be secondary to laminar necrosis and/or hemosiderin. New chronic lacunar infarctions in the deep left cerebellar hemisphere. No diffusion restriction to suggest acute infarction. No recent intracranial hemorrhage or pathologic extra-axial fluid collection. The major arterial flow voids of the skull base are preserved. Globes are symmetric. Minimal maxillary sinus mucosal thickening. Minimal left mastoid fluid. Impression: 1. No acute intracranial abnormality. 2. Multiple chronic infarctions in the supratentorial and infratentorial parenchyma are new compared to the prior MRI. 3. Mayy-[id number] diffuse cerebral volume loss has progressed. Dictated by Roland Tapia MD @ 02/21/2025 4:21:09 PM (Electronically Signed)
[2025-02-21 16:54] LABS: Appearance Urine Clear (Clear)
[2025-02-21 17:05] LABS: Hematocrit* 34.7 % (33.0-51.0); Hemoglobin* 12.2 gm/dL (12.0-16.0); Immature Granulocytes Abs Auto 0.05 K/uL (0.00-0.30); Immature Granulocytes Pct Auto 0.8 %; Lymphocytes Absolute Auto 1.45 K/uL (0.90-2.90); Mean Corpuscular HGB Conc 35 gm/dL (32-36); Mean Corpuscular Hemoglobin 35 pg (26-34); Mean Corpuscular Volume 99 fL (80-100); RDW Coefficient of Variation % 15.8 % (11.5-15.5); Red Blood Count* 3.49 m/uL (4.00-5.20); White Blood Count* 6.65 K/uL (4.50-11.00)
[2025-02-21 17:06] LABS: Cannabinoid Screen Urine Negative (Negative); Methamphetamines Screen Urine Negative (Negative); Tricyclic Antidepressant Urine Negative (Negative)
[2025-02-21 17:08] LABS: Ur HCG Qualitative* Negative (Negative)
[2025-02-21 17:16] LABS: Slide Review Reflex No
[2025-02-21 17:17] LABS: Albumin* 4.5 g/dL (3.3-5.0); Chloride* 104 mmol/L (96-114)
[2025-02-21] MEDS: ACETAMINOPHEN 500 MG TABLET 1000 MG PO (17:17)
[2025-02-21] MEDS: 0.9 % SODIUM CHLORIDE 500 ML 500 ML IV (17:17)
[2025-02-21 17:18] LABS: Potassium* 3.4 mmol/L (3.6-5.1); Sodium* 136 mmol/L (135-149)
[2025-02-21 17:20] LABS: Blood Urea Nitrogen* 9 mg/dL (5-24); Creatinine* 0.7 mg/dL (0.5-1.5); Est. Creatinine Clearance* 77.73; Estimated Glomerular Filt Rate 107 ml/min
[2025-02-21 17:21] LABS: Alanine Aminotransferase* 52 U/L (4-35); Alkaline Phosphatase* 49 U/L (40-150); Anion Gap 9 mEq/L (7-15); Aspartate Amino Transferase* 66 U/L (12-35); Bilirubin Direct* 0.2 mg/dL (0.0-0.5); Bilirubin Total* 2.2 mg/dL (0.1-1.5); Calcium* 9.4 mg/dL (8.4-10.6); Carbon Dioxide* 23 mmol/L (20-32); Ethanol* < 0.01 % (0.01-0.03); Glucose* 87 mg/dL (60-115); Total Protein* 7.7 g/dL (6.0-8.3)
[2025-02-21 17:22] LABS: Acetaminophen* < 10.0 ug/mL (10.0-30.0); Salicylate* < 1.0 mg/dL (1.0-10)
[2025-02-21 17:32] LABS: NT Pro B Type NatriureticPept* 565 pg/mL (See Note)
== END 2025-02-21 19:07 | disposition home or self-care (01) ==
PROVIDERS: Family Medicine; Emergency Provider Student in an Organized Health Care Education/Training Program; PCP Physician Assistant
DX: R51.9 Headache, unspecified (principal)
CPT/HCPCS: 36415; 70551; 80048; 80076; 80143; 80179; 80306; 81001; 81025; 82077; 83735; 83880; 84443; 84484; 85025; 86140; 87086; 93005; 94761; 99284; A9270; J7030